=== PATIENT | male | born 1950 | race Caucasian/White ===

== ENCOUNTER 2016-10-03 09:09 | Emergency (ER) | payer MEDICARE, OTHER ==
[2016-10-03 09:38] VITALS: BP 148/71
--- NOTE | 2016-10-03 10:18 | EDM.PDOC ---
ED HPI RENAL/ - General Chief Complaint: Genitourinary Problem Stated Complaint: URINARY RETENTION Time Seen by Provider: 10/03/16 09:45 Source of Information: Reports: Patient History Limitations: Reports: No limitations - History of Present Illness INITIAL COMMENTS - FREE TEXT/NARRATIVE: PT STATES HE UNDERWENT HEMORRHOIDECTOMY YESTERDAY AT 1600 AND HAS BEEN UNABLE TO VOID SINCE. DEVELOPING LOWER ABD PRESSURE. DENIES TESTICULAR PAIN, , N/V, EXCESSIVE BLEEDING FROM RECTUM, OR FLANK PAIN. Symptom Onset Date: 10/02/16 Location: Reports: suprapubic Quality: Reports: fullness Severity: mild Associated Symptoms: Reports: unable to urinate, abdominal pain - Related Data Allergies/ADRs: Allergies Allergy/AdvReac Type Severity Reaction Status Date / Time No Known Drug Allergies Allergy Cannot Verified 10/03/16 09:39 Remember Home Meds: Home Meds Acetaminophen/HYDROcodone [[employer] 325-5 MG] 1 - 2 tab PO Q4H PRN 10/03/16 [ History] Aspirin [Halfprin] 162 mg PO DAILY 10/03/16 [History] Furosemide [Lasix] 1 tab PO DAILY 10/03/16 [History] Lisinopril/Hydrochlorothiazide [Lisinopril-Hctz 20-25 mg Tab] 1 tab PO BID 10/03 [History] Polyethylene Glycol 3350 [MiraLAX] 1 pkt PO BID PRN 10/03/16 [History] Simvastatin [Zocor] 1 tab PO BEDTIME 10/03/16 [History] metFORMIN HCl [Metformin HCl] 1 tab PO BIDMEALS 10/03/16 [History] Past Medical History HEENT History: Reports: Hard of hearing, Impaired vision Cardiovascular History: Reports: High cholesterol, Hypertension Gastrointestinal History: Reports: Hemorrhoids Endocrine/Metabolic History: Reports: Diabetes, type II - Infectious Disease History Infectious Disease History: Reports: Chicken pox - Past Surgical History Head Surgeries/Procedures: Reports: None HEENT Surgical History: Reports: Adenoidectomy, Tonsillectomy Cardiovascular Surgical History: Reports: None GI Surgical History: Reports: Appendectomy, Colonoscopy, Other (see below) Other GI Surgeries/Procedures: Hemmorrhoidectomy done 09/22/16. Endocrine Surgical History: Reports: None Social & Family History - Tobacco Use Smoking Status *Q: Former Smoker Used Tobacco, but Quit: Yes Month Tobacco Last Used: 22 years - Caffeine Use Caffeine Use: Reports: Coffee, Soda, Tea - Recreational Drug Use Recreational Drug Use: No ED ROS GENERAL - Review of Systems Review Of Systems: ROS reveals no pertinent complaints other than HPI. Constitutional: Reports: no symptoms HEENT: Reports: No symptoms Respiratory: Reports: No Symptoms Cardiovascular: Reports: No symptoms Endocrine: Reports: no symptoms GI/Abdominal: Reports: Abdominal pain : Reports: urinary retention. Denies: flank pain Musculoskeletal: Reports: no symptoms Skin: Reports: no symptoms Neurological: Reports: No Symptoms Psychiatric: Reports: No symptoms Hematologic/Lymphatic: Reports: no symptoms Immunologic: Reports: no symptoms ED EXAM, RENAL/ - Physical Exam Exam: See Below Exam Limited By: No limitations General Appearance: alert, WD/WN, no apparent distress Throat/Mouth: Normal inspection, Normal oropharynx, No airway compromise Head: atraumatic, normocephalic Respiratory/Chest: no respiratory distress, lungs clear, normal breath sounds, no accessory muscle use, chest non-tender Cardiovascular: regular rate, rhythm, no murmur GI/Abdominal: normal bowel sounds, soft (Male) Exam: No hernia, Normal inspection, Circumcised Back Exam: normal inspection. No: CVA tenderness (L), CVA tenderness (R) Extremities: normal inspection, no pedal edema Neurological: alert, oriented, normal cognition Psychiatric: normal affect, normal mood Skin Exam: Warm, Dry, Intact, Normal color, No rash Lymphatic: no adenopathy Course - Vital Signs Last Recorded V/S: Last Vital Signs Temp 99.4 F 10/03/16 09:35 Pulse 65 10/03/16 09:35 Resp 16 10/03/16 09:35 BP 148/71 H 10/03/16 09:35 Pulse Ox 94 L 10/03/16 09:35 - Orders/Labs/Meds Orders: Active Orders 24 hr Category Date Time Status Insert Urinary Catheter [OM.PC] Q24H Care 10/03/16 09:45 Ordered Urinary Catheter Assessment [RC] ASDIRECTED Care 10/03/16 09:41 Active Labs: Laboratory Tests 10/03/16 Range/Units 09:30 Specimen Type Urincath Urine Color Yellow (YELLOW) Urine Appearance Clear (CLEAR) Urine pH 6.5 (5.0-9.0) Ur Specific [place] 1.015 (1.005-1.030) Urine Protein Negative (NEGATIVE) mg/dL Urine Glucose (UA) Negative (NEGATIVE) mg/dL Urine Ketones Negative (NEGATIVE) mg/dL Urine Occult Blood Negative (NEGATIVE) Urine Nitrite Negative (NEGATIVE) Urine Bilirubin Negative (NEGATIVE) Urine Urobilinogen 0.2 (0.2-1.0) E.U./dL Ur Leukocyte Esterase Negative (NEGATIVE) Urine RBC Not seen /HPF Urine WBC Not seen /HPF Hyaline Casts Moderate H (NEGATIVE) /LPF Granular Casts Few H (NEGATIVE) /LPF Urine Mucus Moderate H (NEGATIVE) /LPF - Re-Assessments/Exams Free Text/Narrative Re-Assessment/Exam: 10/03/16 10:17 PT AFEBRILE, NONTOXIC APPEARING, URINARY BELTRÁN WITH LEG BAG PLACED, 1400 CC. Departure - Departure Time of Disposition: 10:18 Disposition: Home, Self-Care 01 Condition: good Clinical Impression: Acute urinary retention Instructions: [place] Catheter Care, Adult, Acute Urinary Retention, Male, Easy- to-Read Forms: ED Department Discharge Additional Instructions: FOLLOW UP ON FRIDAY AT CLINIC - My Orders Last 24 Hours: My Active Orders 10/03/16 09:41 Urinary Catheter Assessment [RC] ASDIRECTED 10/03/16 09:45 Insert Urinary Catheter [OM.PC] Q24H - Assessment/Plan Last 24 Hours: My Active Orders 10/03/16 09:41 Urinary Catheter Assessment [RC] ASDIRECTED 10/03/16 09:45 Insert Urinary Catheter [OM.PC] Q24H Assessment:: URINARY RETENTION Plan: BELTRÁN CATH AND F/U AT CLINIC ON FRIDAY
== END 2016-10-03 10:30 | disposition home or self-care (01) ==
LOC: KA.ED 09:09
DX: R33.9 Retention of urine, unspecified (principal); E78.00 Pure hypercholesterolemia, unspecified; I10 Essential (primary) hypertension; E11.9 Type 2 diabetes mellitus without complications; Z98.890 Other specified postprocedural states; Z87.891 Personal history of nicotine dependence; Z79.82 Long term (current) use of aspirin; Z79.899 Other long term (current) drug therapy
CPT/HCPCS: 81001; 99282; 99283

== ENCOUNTER 2020-03-26 15:14 | Emergency (ER) | payer MEDICARE, OTHER ==
--- NOTE | 2020-03-26 16:04 | EDM.PDOC ---
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 Mild discomfort with a crushing type laceration of the tissue itself. Denies any bone pain denies any deformity, denies difficulty in motion. Bleeding was controlled with direct pressure. [place] he would be able to tape this up until after cleansing, seeing fatty tissue protruding from the laceration secondary of pressure. His daughter whom he was assisting in this project insisted that he seek evaluation. Onset: Today, Sudden Duration: Minutes:, Getting Worse Location: Reports: Upper Extremity, Left Quality: Reports: Burning Severity: Moderate Improves with: Reports: None Worsens with: Reports: Movement Context: Reports: Activity Associated Symptoms: Reports: No Other Symptoms Left Finger-Ring Pain Score (Numeric/FACES): 2 - Related Data Allergies Allergy/AdvReac Type Severity Reaction Status Date / Time Tetanus Vaccines and Toxoid Allergy Muscle Verified 03/26/20 16:36 Aches Home Meds: Home Meds Acetaminophen/HYDROcodone [[place] 325-5 MG] 1 - 2 tab PO Q4H PRN 10/03/16 [History] Aspirin [Halfprin] 162 mg PO DAILY 10/03/16 [History] Furosemide [Lasix] 1 tab PO DAILY 10/03/16 [History] Lisinopril/Hydrochlorothiazide [Lisinopril-Hctz 20-25 mg Tab] 1 tab PO BID 10/03/16 [History] Polyethylene Glycol 3350 [MiraLAX] 1 pkt PO BID PRN 10/03/16 [History] Simvastatin [Zocor] 1 tab PO BEDTIME 10/03/16 [History] metFORMIN HCl [Metformin HCl] 1 tab PO BIDMEALS 10/03/16 [History] Past Medical History HEENT History: Reports: Hard of Hearing, Impaired Vision Cardiovascular History: Reports: High Cholesterol, Hypertension Gastrointestinal History: Reports: Hemorrhoids Endocrine/Metabolic History: Reports: Diabetes, Type II - Infectious Disease History Infectious Disease History: Reports: Chicken Pox - Past Surgical History Head Surgeries/Procedures: Reports: None GI Surgical History: Reports: Appendectomy, Colonoscopy, Other (See Below) Musculoskeletal Surgical History: Reports: Shoulder Surgery Social & Family History - Family History Family Medical History: Noncontributory - Caffeine Use Caffeine Use: Reports: Coffee, Soda, Tea ED ROS GENERAL - Review of Systems Review Of Systems: Comprehensive ROS is negative, except as noted in HPI. ED EXAM, GENERAL - Physical Exam Exam: See Below Free Text/Narrative:: Alert, oriented, in no acute distress. HEENT negative discharge or deformity. There is no respiratory distress noted with clear nonlabored respirations. Cardiac regular Focused examination to the left upper extremity shows a laceration to the medial aspect of the distal phalange 0.5 cm with some fatty tissue protruding. CMS is intact with capillary refill less than 3 seconds. There is no other injury noted. Nothing else is complained of. ED GENERAL MEDICAL PROCEDURES - Laceration/Wound Repair Medial Distal Digit - 4th (Ring) Appearance: Subcutaneous Distal NVT: Neuro & Vascular Intact, No Tendon Injury Anesthetic Type: Local Local Anesthesia - Lidocaine (Xylocaine): 2% Plain Local Anesthetic Volume: 2cc Skin Prep: Providone-Iodine (Betadine) Exploration/Debridement/Repair: Minimal Debridement Closed with: Sutures Suture Size: 4-0 # of Sutures: 3 Suture Type: Nylon Sterile Dressing Applied: Provider Tetanus Status Addressed: Yes Progress/Comments: States that roughly 3 years ago received a tetanus immunization at the [facility]. States he experienced myalgias with malaise for 1 week thereafter, being told that he was likely allergic to tetanus immunization. Course - Vital Signs Last Recorded V/S: Last Vital Signs Temp 35.7 C L 03/26/20 15:30 Pulse 63 03/26/20 15:30 Resp 20 03/26/20 15:30 BP 157/74 H 03/26/20 15:30 Pulse Ox 97 03/26/20 15:30 - Orders/Labs/Meds Meds: Medications Discontinued Medications Generic Name Dose Route Start Last Admin Trade Name Freq PRN Reason Stop Dose Admin Lidocaine 5 ml 03/26/20 16:14 03/26/20 16:35 Xylocaine-Mpf 2% INJECT 03/26/20 16:15 1 ml ONETIME ONE Administration Neomycin/Polymyxin/Bacitracin 1 each 03/26/20 16:14 03/26/20 16:48 Triple Antibiotic Oint TOP 03/26/20 16:15 1 each ONETIME ONE Administration Departure - Departure Time of Disposition: 17:02 Disposition: Home, Self-Care 01 Condition: Good Clinical Impression: Laceration, Suture of skin wound - Discharge Information *PRESCRIPTION DRUG MONITORING PROGRAM REVIEWED*: Not Applicable *COPY OF PRESCRIPTION DRUG MONITORING REPORT IN PATIENT KIMBER: Not Applicable Instructions: Wound Care, Adult, Laceration Care, Adult, [id number], Sutures, [place], or Adhesive Wound Closure, [id number] Referrals: Christina Cohen PA-C [Primary Care Provider] - Forms: ED Department Discharge Additional Instructions: Keep dressing in place until tomorrow morning. Change dressing daily and if soiled. Call your clinic to have sutures removed in 10 days. 3 interrupted sutures were placed. Avoid soaking of the finger until sutures are removed. Continue your medications as directed. You may ice and elevate this for the next 24 hours to reduce swelling. Call your clinic to schedule appointment or call or return to the emergency department this weekend if concerns develop. Sepsis Event Note (ED) - Focused Exam Vital Signs: Vital Signs Temp Pulse Resp BP Pulse Ox 03/26/20 15:30 35.7 C L 63 20 157/74 H 97 - Problem List & Annotations (1) Laceration SNOMED Code(s): 512524111 Code(s): DPP9809 - Status: Acute Priority: High Current Visit: Yes (2) Suture of skin wound SNOMED Code(s): 388297874, 859113756 Code(s): T14.8XXA - OTHER INJURY OF UNSPECIFIED BODY REGION, INITIAL EN COUNTER Status: Acute Current Visit: Yes - Problem List Review Problem List Initiated/Reviewed/Updated: Yes - Assessment/Plan Plan: Keep dressing in place until tomorrow morning. Change dressing daily and if soiled. Call your clinic to have sutures removed in 10 days. 3 interrupted sutures were placed. Avoid soaking of the finger until sutures are removed. Continue your medications as directed. You may ice and elevate this for the next 24 hours to reduce swelling. Call your clinic to schedule appointment or call or return to the emergency department this weekend if concerns develop.
[2020-03-26] MEDS ORDERED: Bacitracin/Neomycin/Polymyxin B Oint 0.9 GM U/D Packet TOP ONE (16:14)
[2020-03-26] MEDS ORDERED: Lidocaine 2% 5 ML SDV INJECT ONE (16:14)
[2020-03-26 16:38] VITALS: BP 157/74; PULSE 63
== END 2020-03-26 17:15 | disposition home or self-care (01) ==
LOC: KA.ED 15:14
DX: S61.215A Laceration without foreign body of left ring finger without damage to nail, initial encounter (principal); I10 Essential (primary) hypertension; E78.00 Pure hypercholesterolemia, unspecified; E11.9 Type 2 diabetes mellitus without complications; Z90.49 Acquired absence of other specified parts of digestive tract; Z88.7 Allergy status to serum and vaccine; Z79.82 Long term (current) use of aspirin; Z79.84 Long term (current) use of oral hypoglycemic drugs; Z79.899 Other long term (current) drug therapy; W23.0XXA Caught, crushed, jammed, or pinched between moving objects, initial encounter
CPT/HCPCS: 12001; 99282-25; 99283; J2001

== ENCOUNTER 2020-04-18 08:07 | Emergency (ER) | payer MEDICARE, OTHER ==
--- NOTE | 2020-04-18 09:12 | EDM.PDOC ---
ED HPI GENERAL MEDICAL PROBLEM - General Chief Complaint: General Stated Complaint: LEGS TINGLY Time Seen by Provider: 04/18/20 08:56 Source of Information: Reports: Patient History Limitations: Reports: No Limitations - History of Present Illness INITIAL COMMENTS - FREE TEXT/NARRATIVE: Patient presents with shortness of breath that he describes as a heaviness in low sternal area that comes and goes, lasting about 5 minutes at a time. It is accompanied by a fullness in his throat. Also has a mild dry cough. This started two weeks ago. His PCP started treatment for bronchitis: augmentin and a 12-day prednisone taper; he is on day 5 of these. It seemed to be improving until this morning, but is now worse again. He feels dry but has been drinking 64-80 ozs of water daily. He tested negative for Covid on 04/11 and hasn't been around anybody since then. - Related Data Allergies Allergy/AdvReac Type Severity Reaction Status Date / Time Tetanus Vaccines and Toxoid Allergy Muscle Verified 04/18/20 08:49 Aches Home Meds: Home Meds Aspirin [Halfprin] 162 mg PO DAILY 10/03/16 [History] Simvastatin [Zocor] 40 mg PO BEDTIME 10/03/16 [History] metFORMIN HCl [Metformin HCl] 500 mg PO BIDMEALS 10/03/16 [History] Amoxicillin/Potassium Clav [Amox-Clav 875-125 mg Tablet] 1 tab PO BID 04/18/20 [History] lisinopriL [Prinivil] 20 mg PO BID 04/18/20 [History] predniSONE [Prednisone] 20 mg PO ASDIRECTED 04/18/20 [History] Past Medical History HEENT History: Reports: Hard of Hearing, Impaired Vision Cardiovascular History: Reports: High Cholesterol, Hypertension Gastrointestinal History: Reports: Hemorrhoids Endocrine/Metabolic History: Reports: Diabetes, Type II - Infectious Disease History Infectious Disease History: Reports: Chicken Pox, Measles, Mumps - Past Surgical History Head Surgeries/Procedures: Reports: None GI Surgical History: Reports: Appendectomy, Colonoscopy, Other (See Below) Musculoskeletal Surgical History: Reports: Shoulder Surgery Social & Family History - Family History Family Medical History: No Pertinent Family History - Tobacco Use Tobacco Use Status *Q: Former Tobacco User Used Tobacco, but Quit: Yes Month/Year Tobacco Last Used: quit 25 yrs ago - Caffeine Use Caffeine Use: Reports: Coffee, Soda, Tea - Alcohol Use Days Per Week of Alcohol Use: 3 Number of Drinks Per Day: 2 Total Drinks Per Week: 6 - Recreational Drug Use Recreational Drug Use: No ED ROS GENERAL - Review of Systems Review Of Systems: See Below Constitutional: Reports: Fatigue. Denies: Fever, Chills, Malaise, Weakness HEENT: Denies: Ear Pain, Throat Pain, Vision Change Respiratory: Reports: Shortness of Breath, Cough Cardiovascular: Denies: Syncope GI/Abdominal: Denies: Abdominal Pain, Constipation, Diarrhea, Vomiting : Denies: Dysuria Musculoskeletal: Denies: Neck Pain, Shoulder Pain, Arm Pain, Back Pain Skin: Denies: Cyanosis, Jaundice, Mottled, Pallor, Diaphoresis Neurological: Denies: Confusion, Dizziness, Headache, Seizure, Syncope, Trouble Speaking, Difficulty Walking Psychiatric: Denies: Agitation, Anxiety, Confusion ED EXAM, GENERAL - Physical Exam Exam: See Below Exam Limited By: No Limitations General Appearance: Alert, WD/WN, No Apparent Distress Eye Exam: Bilateral Eye: EOMI, Normal Inspection, PERRL Ears: Normal External Exam, Hearing Grossly Normal Nose: Normal Inspection, No Blood Throat/Mouth: Normal Inspection, Normal Lips, Normal Voice, No Airway Compromise Head: Atraumatic, Normocephalic Neck: Normal Inspection, Supple, Non-Tender, Full Range of Motion Respiratory/Chest: No Respiratory Distress, Lungs Clear, Normal Breath Sounds, No Accessory Muscle Use Cardiovascular: Regular Rate, Rhythm, No Murmur Peripheral Pulses: 2+: Carotid (L), Carotid (R), Radial (L), Radial (R) GI/Abdominal: Soft, Non-Tender, No Organomegaly, No Distention Back Exam: Normal Inspection, Full Range of Motion. No: CVA Tenderness (L), CVA Tenderness (R) Extremities: Normal Inspection, Normal Range of Motion Neurological: Alert, Oriented, Normal Cognition, No Motor/Sensory Deficits Psychiatric: Normal Affect, Normal Mood Skin Exam: Warm, Dry, Intact, Normal Color, No Rash Course - Vital Signs Last Recorded V/S: Last Vital Signs Temp 97.1 F 04/18/20 08:12 Pulse 57 L 04/18/20 09:45 Resp 17 04/18/20 09:45 BP 184/78 H 04/18/20 09:45 Pulse Ox 96 04/18/20 09:45 - Orders/Labs/Meds Orders: Active Orders 24 hr Category Date Time Status EKG Documentation Completion [RC] ASDIRECTED Care 04/18/20 09:02 Active EKG 12 Lead [EK] Stat Ther 04/18/20 09:01 Ordered Labs: Laboratory Tests 04/18/20 04/18/20 04/18/20 Range/Units 08:38 09:05 09:05 WBC 10.48 H (5.00-10.00) 10^3/uL RBC 5.66 (4.50-6.00) 10^6/uL Hgb 16.8 (13.0-17.0) g/dL Hct 51.1 (40.0-52.0) % MCV 90.3 (82.0-92.0) fL MCH 29.7 (27.0-31.0) pg MCHC 32.9 (32.0-36.0) g/dL RDW 13.0 (11.5-14.5) % Plt Count 279 (150-400) 10^3/uL MPV 11.1 H (7.4-10.4) fL Immature Gran % (Auto) 0.3 (0.0-5.0) % Neut % (Auto) 71.1 H (50.0-70.0) % Lymph % (Auto) 21.3 (20.0-40.0) % [place] % (Auto) 5.9 (2.0-8.0) % Eos % (Auto) 0.7 L (1.0-3.0) % Baso % (Auto) 0.7 (0.0-1.0) % Neut # (Auto) 7.46 H (2.50-7.00) 10^3/uL Lymph # (Auto) 2.23 (1.00-4.00) 10^3/uL [place] # (Auto) 0.62 (0.10-0.80) 10^3/uL Eos # (Auto) 0.07 L (0.10-0.30) 10^3/uL Baso # (Auto) 0.07 (0.00-0.10) 10^3/uL Immature Gran # (Auto) 0.03 (0.00-0.50) 10^3/uL Sodium 138 (136-145) mmol/L Potassium 3.9 (3.3-5.3) mmol/L Chloride 101 (98-115) mmol/L Carbon Dioxide 21.6 (21.0-32.0) mmol/L Anion Gap 19.3 H (5-15) mmol/L BUN 13 (6-25) mg/dL Creatinine 0.66 (0.51-1.17) mg/dL Est Cr Clr Drug Dosing 114.31 mL/min Estimated GFR (MDRD) > 60 mL/min Glucose 122 H (75 - 99) mg/dL Calcium 9.3 (8.7-10.3) mg/dL Troponin I < 0.04 (0.00-0.070) ng/mL - Re-Assessments/Exams Free Text/Narrative Re-Assessment/Exam: 04/18/20 09:20 CXR shows faint interstitial pattern unchanged from 04/14/20. BP was up to 206/105 briefly then back to 186/93. He says he took his BP meds this morning like always. At home it has been running high quite a bit too. 04/18/20 09:25 EKG is normal except HR 55. 04/18/20 09:51 Trop is negative. Discussed findings with patient. No significant or concerning findings. He will continue the Abx and steroid regimens he is on and follow up with his PCP in 2-3 days if not improving. Discharged to home in stable condition. Departure - Departure Time of Disposition: 09:53 Disposition: Home, Self-Care 01 Condition: Good Clinical Impression: Dyspnea - Discharge Information Instructions: Shortness of Breath, Adult, [id number] Referrals: Christina Cohen PA-C [Primary Care Provider] - Forms: ED Department Discharge Additional Instructions: Continue to drink at least 8 cups of water daily. Continue the medications from your PCP as directed. Continue your regular medications. Follow up with your PCP in 2-3 days for recheck if not resolving and to evaluate your blood pressure control. Recheck sooner with PCP or ER if needed. Sepsis Event Note (ED) - Evaluation Sepsis Screening Result: No Definite Risk - Focused Exam Vital Signs: Vital Signs Temp Pulse Resp BP Pulse Ox 04/18/20 09:45 57 L 17 184/78 H 96 04/18/20 09:31 54 L 14 176/73 H 95 04/18/20 09:15 56 L 21 H 186/93 H 98 04/18/20 09:00 61 11 L 206/105 H 96 04/18/20 08:45 55 L 20 188/82 H 97 04/18/20 08:30 62 20 194/96 H 99 04/18/20 08:15 57 L 18 184/84 H 98 04/18/20 08:12 97.1 F 60 22 H 188/86 H 95 - My Orders Last 24 Hours: My Active Orders 04/18/20 09:01 EKG 12 Lead [EK] Stat 04/18/20 09:02 EKG Documentation Completion [RC] ASDIRECTED - Assessment/Plan Last 24 Hours: My Active Orders 04/18/20 09:01 EKG 12 Lead [EK] Stat 04/18/20 09:02 EKG Documentation Completion [RC] ASDIRECTED
--- NOTE | 2020-04-18 09:15 | CR ---
[id number] RAD/RAD Chest PA or AP 1V EXAM: SINGLE VIEW CHEST. INDICATION: SHORTNESS OF BREATH COMPARISON: CORRELATION IS MADE WITH APRIL 14, 2020 FINDINGS: A faint interstitial pattern remains the same Surgical changes of the left shoulder are seen The cardiac silhouette is enlarged but stable IMPRESSION: NO CHANGE SINCE LAST EXAM Octavio Erickson MD 04/18/20 0914 Thank you for allowing us to participate in the care of your patient.
[2020-04-18 09:32] LABS: ANION GAP 19.3 mmol/L (5-15); CHLORIDE,CL 101 mmol/L (98-115); SODIUM,NA 138 mmol/L (136-145)
[2020-04-18 09:47] VITALS: BP 184/78; PULSE 57
== END 2020-04-18 10:00 | disposition home or self-care (01) ==
LOC: KA.ED 08:07
DX: R06.02 Shortness of breath (principal); E78.00 Pure hypercholesterolemia, unspecified; I10 Essential (primary) hypertension; E11.9 Type 2 diabetes mellitus without complications; Z79.82 Long term (current) use of aspirin; Z79.84 Long term (current) use of oral hypoglycemic drugs; Z79.899 Other long term (current) drug therapy; Z88.7 Allergy status to serum and vaccine; Z87.891 Personal history of nicotine dependence
CPT/HCPCS: 36415; 71045; 80048; 84484; 85025; 93005; 99284; 99285-25

== ENCOUNTER 2020-06-27 11:26 | Emergency (ER) | payer MEDICARE, OTHER ==
--- NOTE | 2020-06-27 11:30 | EDM.PDOC ---
ED HPI GENERAL MEDICAL PROBLEM - General Chief Complaint: Neuro Symptoms/Deficits Stated Complaint: WEAKNESS,NAUSEA Time Seen by Provider: 06/27/20 11:29 Source of Information: Reports: Patient History Limitations: Reports: No Limitations - History of Present Illness INITIAL COMMENTS - FREE TEXT/NARRATIVE: Abiel, 69-year-old male, presents by private vehicle driven by his secondary of tingling sensation to his face and to the lower extremities with generalized weakness. This has resolved upon arrival. Has continuing abdominal pressure/nausea with no difficulty breathing no shortness of breath, nor chest pain. He is retired spending the majority of the winter in his home with no exertional activity. States "his mattress is fairly new and is supposedly good for what you pay for them." He has not undergone any spinal work-up as of recent. He states all symptoms other than the abdominal pressure questionable nausea resolved while traveling to the emergency department. He had 2 bowel movements this morning both of which he states were within his normal expectations. Has been at home with low for risk exposures, and no symptoms of pandemic COVID- 19. Onset: Today Onset Date: 06/27/20 Onset Time: 10:00 Duration: Hour(s):, Resolved Prior to Arrival Location: Reports: Face, Chest, Abdomen, Lower Extremity, Left, Lower Extremity, Right Quality: Reports: Other Severity: Moderate Improves with: Reports: Other (time from onset, resolved on arrival) Worsens with: Reports: None Context: Reports: Activity Associated Symptoms: Reports: No Other Symptoms - Related Data Allergies Allergy/AdvReac Type Severity Reaction Status Date / Time Tetanus Vaccines and Toxoid Allergy Muscle Verified 06/27/20 11:36 Aches Home Meds: Home Meds Aspirin [Halfprin] 162 mg PO DAILY 10/03/16 [History] Simvastatin [Zocor] 40 mg PO BEDTIME 10/03/16 [History] metFORMIN HCl [Metformin HCl] 500 mg PO BIDMEALS 10/03/16 [History] Amoxicillin/Potassium Clav [Amox-Clav 875-125 mg Tablet] 1 tab PO BID 04/18/20 [History] lisinopriL [Prinivil] 20 mg PO BID 04/18/20 [History] predniSONE [Prednisone] 20 mg PO ASDIRECTED 04/18/20 [History] Past Medical History HEENT History: Reports: Hard of Hearing, Impaired Vision Cardiovascular History: Reports: High Cholesterol, Hypertension Gastrointestinal History: Reports: Hemorrhoids Musculoskeletal History: Reports: Back Pain, Chronic, Other (See Below) (Left shoulder pain) Endocrine/Metabolic History: Reports: Diabetes, Type II - Infectious Disease History Infectious Disease History: Reports: Chicken Pox, Measles, Mumps - Past Surgical History Head Surgeries/Procedures: Reports: None GI Surgical History: Reports: Appendectomy, Colonoscopy, Other (See Below) Neurological Surgical History: Reports: Lumbar Spine (disc rupture) Musculoskeletal Surgical History: Reports: Shoulder Surgery - Past Imaging History Past Imaging History: Reports: MRI, Xray Social & Family History - Family History Family Medical History: No Pertinent Family History - Tobacco Use Tobacco Use Status *Q: Former Tobacco User Tobacco Use Within Last Twelve Months: No Used Tobacco, but Quit: Yes Smoking Cessation Information Provided To Patient: No Second Hand Smoke Exposure: No - Caffeine Use Caffeine Use: Reports: Coffee, Soda, Tea - Living Situation & Occupation Living situation: Reports: , with Spouse ED ROS GENERAL - Review of Systems Review Of Systems: Comprehensive ROS is negative, except as noted in HPI. ED EXAM, GENERAL - Physical Exam Exam: See Below Free Text/Narrative:: Alert, oriented, in no acute distress. HEENT is negative for any facial asymmetry, he is able to smile, frown, manipulate his tongue and point his tongue with no deficit at this time. His facial paresthesia has resolved completely. Neck is soft supple with no lymphadenopathy. His left shoulder has chronic weakness and limitations to motion secondary of injury with reevaluation coming up in the next month. Thorax is clear throughout with no wheezes or crackles. Cardiac is S1 is 2 I do not appreciate any murmur, he is mildly bradycardic at the time of assessment. Abdomen is rotund soft there is no hepatosplenomegaly. Bowel sounds are present. No flank pain tenderness to percussion no spinal tenderness or radiculopathy induced with an incision in the lumbar region that is well approximated healed several years old. His reflexes are mildly delayed in the upper extremities bilateral. His lower patellar reflex is hyper bilateral. There is transient weakness to plantar flexion dorsiflexion, of what I would attribute in a gentleman of this age and stature. We do discuss sleeping properties that he almost always sleeps in bed, with a reasonable mattress. But coincidence of this resolving in the lower extremities with positioning and motion makes me aware of his previous surgical disc involvement. Nearly 30 years since surgery with no reevaluation. #1 Interpretation EKG Date: 06/27/20 Time: 12:20 Rhythm: NSR Rate (Beats/Min): 57 [place]: Normal P-Wave: Present QRS: Normal ST-T: Normal QT: Normal Comparison: No Change (Bradycardia rate 57 compared to 55 on prior) Course - Vital Signs Last Recorded V/S: Last Vital Signs Temp 97.4 F 06/27/20 12:17 Pulse 58 L 06/27/20 12:17 Resp 14 06/27/20 12:17 BP 158/67 H 06/27/20 12:17 Pulse Ox 97 06/27/20 12:17 - Orders/Labs/Meds Orders: Active Orders 24 hr Category Date Time Status EKG 12 Lead [EK] Urgent Ther 06/27/20 11:42 Ordered Labs: Laboratory Tests 06/27/20 06/27/20 Range/Units 11:45 11:45 WBC 10.13 H (5.00-10.00) 10^3/uL RBC 5.30 (4.50-6.00) 10^6/uL Hgb 15.9 (13.0-17.0) g/dL Hct 47.4 (40.0-52.0) % MCV 89.4 (82.0-92.0) fL MCH 30.0 (27.0-31.0) pg MCHC 33.5 (32.0-36.0) g/dL RDW 14.1 (11.5-14.5) % Plt Count 278 (150-400) 10^3/uL MPV 10.5 H (7.4-10.4) fL Immature Gran % (Auto) 0.2 (0.0-5.0) % Neut % (Auto) 60.7 (50.0-70.0) % Lymph % (Auto) 26.9 (20.0-40.0) % [place]mer % (Auto) 9.5 H (2.0-8.0) % Eos % (Auto) 2.1 (1.0-3.0) % Baso % (Auto) 0.6 (0.0-1.0) % Neut # (Auto) 6.15 (2.50-7.00) 10^3/uL Lymph # (Auto) 2.73 (1.00-4.00) 10^3/uL [place]mer # (Auto) 0.96 H (0.10-0.80) 10^3/uL Eos # (Auto) 0.21 (0.10-0.30) 10^3/uL Baso # (Auto) 0.06 (0.00-0.10) 10^3/uL Immature Gran # (Auto) 0.02 (0.00-0.50) 10^3/uL Sodium 135 L (136-145) mmol/L Potassium 5.3 H (3.5-5.1) mmol/L Chloride 102 (98-107) mmol/L Carbon Dioxide 26.6 (21.0-32.0) mmol/L Anion Gap 11.7 (5-15) mmol/L BUN 10 (7-18) mg/dL Creatinine 0.75 (0.51-1.17) mg/dL Est Cr Clr Drug Dosing 100.59 mL/min Estimated GFR (MDRD) > 60 mL/min Glucose 104 (70-140) mg/dL Calcium 9.3 (8.7-10.3) mg/dL Total Bilirubin 0.7 (0.2-1.0) mg/dL AST 48 H (15-37) U/L ALT 31 (14-63) U/L Alkaline Phosphatase 57 (46-116) U/L Creatine Kinase 161 (26-276) U/L CK-MB (CK-2) 0.87 (0.00-3.60) ng/mL Troponin I < 0.017 (0.000-0.056) ng/mL Total Protein 7.5 (6.4-8.2) g/dL Albumin 3.60 (3.40-5.00) g/dL - Radiology Interpretation Free Text/Narrative:: No evidence of cardiomegaly or acute infiltrate. Mild interstitial pattern is noted. Departure - Departure Time of Disposition: 13:24 Disposition: Home, Self-Care 01 Condition: Good Clinical Impression: Tingling in extremities, Acute hyperkalemia - Discharge Information *PRESCRIPTION DRUG MONITORING PROGRAM REVIEWED*: Not Applicable *COPY OF PRESCRIPTION DRUG MONITORING REPORT IN PATIENT KIMBER: Not Applicable Instructions: Hyperkalemia, [id number], Paresthesia, [id number] Referrals: Christina Cohen PA-C [Primary Care Provider] - Forms: ED Department Discharge Additional Instructions: CT scan of your brain shows changes of age, chronic microvascular involvement. Your chest x-ray is normal for any involvement. EKG shows no evidence of heart circulation issues, as well as your heart blood work being negative. Your potassium is slightly elevated, probably related to the intake of your bananas. You should schedule an appointment in the next week to follow-up with Christnia in regards to the potassium level as well as your routine diabetic follow-up that you state is coming due. When you go back to [place] to talk to them about your shoulder, I would recommend discussing the issue with your bilateral tingling to the lower extremities that comes on and resolves spontaneously. This recommendation is based on the fact you had disc surgery nearly 30 years ago and should have follow-up on this based on your symptoms. Continue your diabetic diet, good fluid hydration, and schedule an appointment for your convenience in the next week. Return to the emergency department or contact the clinic otherwise as needed. Sepsis Event Note (ED) - Focused Exam Vital Signs: Vital Signs Temp Pulse Resp BP Pulse Ox 06/27/20 12:17 97.4 F 58 L 14 158/67 H 97 06/27/20 11:30 97.4 F 65 20 191/80 H 97 - Problem List & Annotations (1) Tingling in extremities SNOMED Code(s): 94927296, 620878458, 000699607 Code(s): R20.2 - PARESTHESIA OF SKIN Status: Acute (2) Tingling of face SNOMED Code(s): 38773126, 124961434 Code(s): R20.2 - PARESTHESIA OF SKIN Status: Acute (3) Acute hyperkalemia SNOMED Code(s): 5991951 Code(s): E87.5 - HYPERKALEMIA Status: Acute (4) Hx of lumbosacral spine surgery SNOMED Code(s): 657454282 Code(s): Z98.890 - OTHER SPECIFIED POSTPROCEDURAL STATES Status: Acute - My Orders Last 24 Hours: My Active Orders 06/27/20 11:42 EKG 12 Lead [EK] Urgent - Assessment/Plan Last 24 Hours: My Active Orders 06/27/20 11:42 EKG 12 Lead [EK] Urgent Plan: CT scan of your brain shows changes of age, chronic microvascular involvement. Your chest x-ray is normal for any involvement. EKG shows no evidence of heart circulation issues, as well as your heart blood work being negative. Your potassium is slightly elevated, probably related to the intake of your bananas. You should schedule an appointment in the next week to follow-up with Christina in regards to the potassium level as well as your routine diabetic follow-up that you state is coming due. When you go back to [place] to talk to them about your shoulder, I would recommend discussing the issue with your bilateral tingling to the lower extre mities that comes on and resolves spontaneously. This recommendation is based on the fact you had disc surgery nearly 30 years ago and should have follow-up on this based on your symptoms. Continue your diabetic diet, good fluid hydration, and schedule an appointment for your convenience in the next week. Return to the emergency department or contact the clinic otherwise as needed.
[2020-06-27 12:24] VITALS: BP 158/67; PULSE 58
[2020-06-27 12:29] LABS: ANION GAP 11.7 mmol/L (5-15); CHLORIDE,CL 102 mmol/L (98-107); SODIUM,NA 135 mmol/L (136-145)
--- NOTE | 2020-06-27 13:01 | CR ---
[id number] RAD/RAD Chest PA And Lateral EXAM: RAD Chest PA And Lateral INDICATION: PRESSURE. COMPARISON: April 18, 2020. DISCUSSION: Cardiomediastinal silhouette is stable in size and contour. No infiltrate, effusion, pneumothorax, or edema. Pulmonary hyperinflation. IMPRESSION: No acute cardiopulmonary abnormality. Nile Moralez DO 06/27/20 1300 Thank you for allowing us to participate in the care of your patient.
--- NOTE | 2020-06-27 13:07 | CT ---
[id number] CT/CT Head WO IV EXAM: CT Head WO IV CLINICAL DATA: TINGLING. COMPARISON STUDY: None FINDINGS: No intracranial hemorrhage, extra-axial fluid collection, mass, or acute ischemia. Generalized parenchymal atrophy with scattered areas of nonspecific white matter disease, commonly seen as sequela of chronic microvascular ischemia. Soft tissues are unremarkable. Paranasal sinuses and mastoid air cells are clear. IMPRESSION: No acute intracranial findings. Nile Moralez DO 06/27/20 [id number] Thank you for allowing us to participate in the care of your patient.
== END 2020-06-27 13:30 | disposition home or self-care (01) ==
LOC: KA.ED 11:26
DX: E87.5 Hyperkalemia (principal); R20.2 Paresthesia of skin; R00.1 Bradycardia, unspecified; I10 Essential (primary) hypertension; E78.00 Pure hypercholesterolemia, unspecified; E11.9 Type 2 diabetes mellitus without complications; Z87.891 Personal history of nicotine dependence; Z88.7 Allergy status to serum and vaccine; Z79.82 Long term (current) use of aspirin; Z79.899 Other long term (current) drug therapy
CPT/HCPCS: 36415; 70450; 71046; 80053; 82550; 82553; 84484; 85025; 93005; 99284; 99285-25

== ENCOUNTER 2020-07-06 10:27 | Observation (INO) | payer MEDICARE, OTHER ==
[2020-07-06] MEDS ORDERED: Zolpidem 5 MG Tab PO PRN (10:55)
[2020-07-06] MEDS ORDERED: HYDROmorphone 2 MG/ML SDV IVPUSH PRN (10:55)
[2020-07-06] MEDS ORDERED: Sodium Chloride 0.9% 10 ML Syringe FLUSH PRN (10:55)
[2020-07-06] MEDS ORDERED: Betamethasone Dipropionate 0.05% Crm 15 GM Tube TOP PRN (11:02)
[2020-07-06] MEDS ORDERED: Albuterol 8 GM Inhaler INH PRN (11:02)
[2020-07-06] MEDS ORDERED: Clotrimazole 1% Crm 30 GM Tube TOP PRN (11:29)
[2020-07-06] MEDS: Pantoprazole 40 MG Vial IVPUSH SCH ×2 (11:59→22:00)
[2020-07-06] MEDS ORDERED: Diatrizoate Meglumine/Diatrizoate Sodium 37% 30 ML Bottle PO ONE (13:30)
[2020-07-06] MEDS ORDERED: Iopamidol 755 Mg/ML 100 ML Bottle IV ONE (13:30)
[2020-07-06] MEDS ORDERED: Sodium Chloride 0.9% 50 ML IV SCH (13:30)
[2020-07-06] MEDS: Sodium Chloride 0.9% 1,000 ML IV SCH ×2 (14:00→22:00)
[2020-07-06] MEDS ORDERED: Simvastatin 20 MG Tab PO SCH (21:00)
[2020-07-06] MEDS ORDERED: Lisinopril 20 MG Tab PO SCH (21:00)
[2020-07-07] MEDS: Sodium Chloride 0.9% 1,000 ML IV SCH (06:09)
[2020-07-07 06:29] VITALS: BP 164/67; PULSE 63
[2020-07-07] MEDS ORDERED: Aspirin 81 MG Tab.EC PO SCH (09:00)
[2020-07-07] MEDS ORDERED: Fish Oil/Omega-3 Fatty Acids 1 Gm Cap PO SCH (09:00)
--- NOTE | 2020-07-24 22:22 | DISCH ---
This is a 69-year-old male who presented to the clinic with persistent abdominal pain. He was seen in the clinic on 07/06/2020, the day of his admission. He had been complaining of abdominal pain since 04/2020. He reported having continued abdominal pressure and nausea. He also describes some problems getting his breath at times. He feels as though the pain kind of goes up into his esophagus into the back of his throat and feels like it is closing up. The patient denies any change in his bowel habit. He had a bowel movement the day of his admission. He was unable to eat anything with the exception of two cups of Cream of Wheat. The patient has had five colonoscopies in the past. Approximately five years ago, he had a benign colon polyp. He was recently seen in the emergency room as well with a tingling sensation to his face and lower extremities with generalized weakness. All of that had resolved upon his arrival to the emergency room. I saw him in ER followup on 07/04/2020 and he complained of abdominal pain. He had lab work done to include a CBC, CMP, lipid panel, TSH, vitamin D as well as A1c. All values were acceptable with the exception of a low vitamin D of 20. He was scheduled for an abdominal ultrasound and have that performed the day prior to his admission. The liver was normal in size and echo texture. There was cholelithiasis without sonographic Gann's, gallbladder wall thickening or cholecystic fluid to suggest acute cholecystitis. Common bile duct was normal in diameter. The remainder of the abdominal organs were unremarkable with the exception of some nephrolithiasis. He did report that he had had a little bit darker stools than normal. The patient has a history of hypertension and is taking lisinopril and his blood pressure has been stable with this. He is on a daily aspirin regimen. He has had diabetes mellitus and is taking metformin with an A1c on 07/04/2020 of 5.2%. He has hypercholesterolemia, which is stable. He uses fish oil capsules. Surgical and social history have been reviewed. The patient continued to improve. I am concerned that this may be an upper GI issue and I will set him up as an outpatient with Dr. Manas Khalil to have an upper GI endoscopy on 07/11/2020. PHYSICAL EXAMINATION: VITAL SIGNS: Temp is 98.4, pulse 63, respirations 20, blood pressure 164/67, O2 saturation is 95% on room air. SKIN: Warm and dry to touch. CARDIAC: Reveals S1, S2 to be normal. Rate and rhythm are regular. No murmur, click, or gallop is auscultated. LUNGS: Clear. ABDOMEN: Soft, somewhat tender in the epigastrium and in the lower abdomen which he attributes to having diarrhea from the contrast dye from the CT scan yesterday. EXTREMITIES: There is no pedal edema. IMPRESSION: 1. Abdominal pain with documented cholelithiasis. I will set him up for an outpatient gastroscopy with Dr. Manas Khalil on 07/11/2020. The patient did have a chest CT as well as abdomen pelvis CT, which confirmed cholelithiasis. The patient was found to have coronary artery disease, which should probably be worked up in the future. He does have some changes in his lungs consistent with emphysema. 1. Hypertension, stable. 2. Diabetes mellitus, stable. 3. Hypercholesterolemia, stable. The patient is discharged with all the same medications he was admitted with. I did add Protonix 40 mg daily. Should he have any questions or concerns, he will notify me. I also prescribed an albuterol inhaler for him for the sensation of shortness of breath that he has been experiencing. /[id number]/MODL
== END 2020-07-07 09:32 | disposition home or self-care (01) ==
LOC: KA.MS 11:30 → UNDOADMOB 11:48 → KA.MS 11:48
DX: K80.20 Calculus of gallbladder without cholecystitis without obstruction (principal); I10 Essential (primary) hypertension; E11.9 Type 2 diabetes mellitus without complications; E78.00 Pure hypercholesterolemia, unspecified; R00.1 Bradycardia, unspecified; Z01.812 Encounter for preprocedural laboratory examination; Z20.822 Contact with and (suspected) exposure to COVID-19; Z79.82 Long term (current) use of aspirin; Z79.899 Other long term (current) drug therapy; Z79.84 Long term (current) use of oral hypoglycemic drugs; Z90.49 Acquired absence of other specified parts of digestive tract; Z88.7 Allergy status to serum and vaccine
CPT/HCPCS: 71260; 74177; 82150; 82272; 83690; 84484; 87338; 93005; 96374; 96376; 99217; 99220; A9270; C9113; G0378; J7030; Q9963; Q9967; U0002

== ENCOUNTER 2020-07-11 07:54 | Day surgery (SDC) | payer MEDICARE, OTHER ==
[~2020-07-11 07:54] MED LIST: Sodium Chloride 0.9% 1,000 ML IV SCH; Sodium Chloride 0.9% 10 ML Syringe FLUSH PRN
[2020-07-11] MEDS ORDERED: Propofol 200 MG/20 ML SDV IV ONE (07:55)
[2020-07-11] MEDS ORDERED: Glycopyrrolate 0.2 MG/ML SDV IVPUSH ONE (07:55)
[2020-07-11] MEDS ORDERED: Lidocaine 2% 100 MG/5 ML Syringe IVPUSH ONE (07:55)
[2020-07-11] MEDS ORDERED: Midazolam 1 MG/ML 2 ML SDV IV ONE (07:55)
[2020-07-11] MEDS ORDERED: Midazolam 1 MG/ML 2 ML SDV ONE (08:47)
[2020-07-11] MEDS ORDERED: Glycopyrrolate 0.2 MG/ML SDV ONE (08:48)
[2020-07-11] MEDS ORDERED: Propofol 200 MG/20 ML SDV ONE (08:48)
[2020-07-11] MEDS ORDERED: Lidocaine 2% 100 MG/5 ML Syringe ONE (08:48)
--- NOTE | 2020-07-11 09:05 | PCM.PN ---
- General Info Date of Service: 07/11/20 - Review of Systems Systems Review Comment:: 69-year-old male with 2-week history of upper abdominal pain and bloating referred for EGD. He is medically stable to proceed today. His recent history and physical is reviewed and no significant changes are noted. I have discussed the proposed EGD with the patient and he agrees to proceed excepting risks. Recent CT scan does document cholelithiasis. This may be contributing to symptoms. - Patient Data Vitals - Most Recent: Last Vital Signs Temp 98.3 F 07/11/20 08:07 Pulse 60 07/11/20 08:07 Resp 18 07/11/20 08:07 BP 144/82 H 07/11/20 08:07 Pulse Ox 96 07/11/20 08:07 Weight - Most Recent: 120.656 kg Lab Results Last 24 Hours: Laboratory Results - last 24 hr 07/11/20 Range/Units 08:19 POC Glucose 116 H (74-100) mg/dL Med Orders - Current: Current Medications Sodium Chloride (Normal Saline) 1,000 mls @ 50 mls/hr IV ASDIRECTED MELL Last Admin: 07/11/20 08:20 Dose: 50 mls/hr Documented by: Sodium Chloride (Saline Flush) 10 ml FLUSH Q8HR PRN PRN Reason: keep vein open Discontinued Medications Glycopyrrolate (Robinul) Confirm Administered Dose 0.6 mg .ROUTE .STK-MED ONE Stop: 07/11/20 08:49 Lidocaine HCl (Xylocaine 2%) Confirm Administered Dose 100 mg .ROUTE .STK-MED ONE Stop: 07/11/20 08:49 Midazolam HCl (Versed 1 Mg/Ml) Confirm Administered Dose 2 mg .ROUTE .STK-MED ONE Stop: 07/11/20 08:48 Propofol (Diprivan 20 Ml) Confirm Administered Dose 400 mg .ROUTE .STK-MED ONE Stop: 07/11/20 08:49 Sepsis Event Note - Focused Exam Vital Signs: Vital Signs Temp Pulse Resp BP Pulse Ox 07/11/20 08:07 98.3 F 60 18 144/82 H 96 - Problem List Review Problem List Initiated/Reviewed/Updated: Yes - My Orders Last 24 Hours: My Active Orders 07/11/20 07:30 Blood Glucose Check, Bedside [RC] UPON Patient to Empty Bladder [RC] ASDIRECTED Sodium Chloride 0.9% [Normal Saline] 1,000 ml IV ASDIRECTED Sodium Chloride 0.9% [Saline Flush] 10 ml FLUSH Q8HR PRN Peripheral IV Insertion Adult [OM.PC] Routine Resuscitation Status Routine 07/11/20 07:31 Peripheral IV Care [RC] . DIRECTED 07/11/20 Breakfast Nothing Per Oral Diet [DIET] 07/11/20 09:00 Verify Patient Consent Obtain [RC] ASDIRECTED - Assessment Assessment:: Abdominal pain Abdominal bloating - Plan Plan:: EGD
--- NOTE | 2020-07-11 09:30 | PCM.OPNOTE ---
- General Post-Op/Procedure Note Date of Surgery/Procedure: 07/11/20 Operative Procedure(s): EGD with Biopsy Findings: Normal appearing structures on EGD Pre Op Diagnosis: Abdominal pain and bloating Post-Op Diagnosis: Normal EGD Anesthesia Technique: MAC Primary Surgeon: Manas Khalil Pathology: Biopsies of Duodenum and Gastric Antrum EBL in mLs: 2 Complications: None Condition: Good
--- NOTE | 2020-07-11 13:35 | OR ---
DATE OF SURGERY: 07/11/2020 SURGEON: Manas Khalil MD PREOPERATIVE DIAGNOSIS: Abdominal pain and bloating. POSTOPERATIVE DIAGNOSIS: Normal upper endoscopy. OPERATION PERFORMED: Esophagogastroduodenoscopy with biopsy. INDICATIONS FOR SURGERY: This 69-year-old male is referred for upper endoscopy. He has been having symptoms of upper abdominal pain, bloating, and some nausea. CT scan has shown cholelithiasis. Upper endoscopy is planned to rule out other pathology. FINDINGS: Structures reviewed on upper endoscopy appeared normal. No visible signs of inflammation, ulcers, or anatomic variation was noted. PROCEDURE IN DETAIL: The patient was taken to the operating room. He was given intravenous sedation and with him in the left lateral decubitus position, the Olympus gastroscope was advanced through a mouth guard into the oral cavity. Under direct visualization, the scope was then advanced through the oropharynx and then down through the esophagus, stomach, and into the duodenum, where examination to the 4th portion is performed. Careful examination showed the duodenum to appear normal. Random biopsies of the duodenal mucosa are taken. The scope was withdrawn back into the stomach, where full examination including retroflexed examination of the fundus was carried out. Random biopsies of the antrum are taken to rule out H pylori. The GE junction and esophagus are also re-examined as the scope was withdrawn. After the examination had been completed and with no sign of any complication, the scope was removed and the patient was taken from the operating room in satisfactory condition. ESTIMATED BLOOD LOSS: 2 mL. COMPLICATIONS: None. PROGNOSIS: Good. /[id number]/MODL
[2020-07-11 13:37] VITALS: BP 129/70; PULSE 70
== END 2020-07-11 11:05 | disposition home or self-care (01) ==
LOC: KA.SDS 07:54
PROVIDERS: ATTEND Surgery
DX: K29.50 Unspecified chronic gastritis without bleeding (principal); K31.89 Other diseases of stomach and duodenum; I10 Essential (primary) hypertension; E11.9 Type 2 diabetes mellitus without complications; E78.00 Pure hypercholesterolemia, unspecified; K80.20 Calculus of gallbladder without cholecystitis without obstruction; R00.1 Bradycardia, unspecified; Z98.890 Other specified postprocedural states; Z79.82 Long term (current) use of aspirin; Z79.84 Long term (current) use of oral hypoglycemic drugs; Z88.7 Allergy status to serum and vaccine; Z79.899 Other long term (current) drug therapy
CPT/HCPCS: 00731; 82962; 88305; 88342; J2001; J2250; J2704; J3490; J7030

== ENCOUNTER 2020-07-30 09:56 | Emergency (ER) | payer MEDICARE, OTHER ==
--- NOTE | 2020-07-30 10:24 | EDM.PDOC ---
ED HPI GENERAL MEDICAL PROBLEM - General Chief Complaint: General Stated Complaint: shortness of breath Time Seen by Provider: 07/30/20 10:23 Source of Information: Reports: Patient - History of Present Illness INITIAL COMMENTS - FREE TEXT/NARRATIVE: Abiel, 69-year-old male, awoke this morning with significant shortness of breath. States the past 3 to 4 days has had some ringing in his ears that has been in moderation. Noted his hearing aids are 3- 4 years old. Gallbladder per laparoscopic removal roughly 2 weeks ago this coming week with no sequela from that. States his bowel movements have been every other day with no straining or issues since then. Denies any chest pain specifically nor any abdominal pain that is different than postsurgical issues. Has not had fever chills., States his appetite is slowly returning. Onset: Today, Gradual Duration: Hour(s): Location: Reports: Chest, Generalized Quality: Reports: Pressure Severity: Moderate Improves with: Reports: None Worsens with: Reports: Other (activity) Associated Symptoms: Reports: Other (post-surgical feeling/pressure to abdomen) - Related Data Allergies Allergy/AdvReac Type Severity Reaction Status Date / Time Tetanus Vaccines and Toxoid Allergy Muscle Verified 07/30/20 10:03 Aches Home Meds: Home Meds Aspirin [Halfprin] 162 mg PO DAILY 10/03/16 [History] Simvastatin [Zocor] 40 mg PO BEDTIME 10/03/16 [History] metFORMIN HCl [Metformin HCl] 500 mg PO BIDMEALS 10/03/16 [History] lisinopriL [Prinivil] 20 mg PO BID 04/18/20 [History] Albuterol [Ventolin HFA] 1 - 2 puff INH Q4HR PRN 07/06/20 [History] Betamethasone Dipropionate [Diprosone 0.05% Crm] 1 applic TOP ASDIRECTED PRN 07/06/20 [History] Clotrimazole 1 applic TOP ASDIRECTED PRN 07/06/20 [History] Fish Oil/Benzonia-3 Fatty Acids [Fish Oil 1,000 MG] 1 cap PO DAILY 07/06/20 [History] Past Medical History HEENT History: Reports: Hard of Hearing, Impaired Vision Cardiovascular History: Reports: High Cholesterol, Hypertension Respiratory History: Reports: None Gastrointestinal History: Reports: Hemorrhoids, Other (See Below) Other Gastrointestinal History: currently having nausea and some difficulty with swallowing foods. Musculoskeletal History: Reports: Back Pain, Chronic, Other (See Below) Psychiatric History: Reports: None Endocrine/Metabolic History: Reports: Diabetes, Type II Dermatologic History: Reports: Eczema - Infectious Disease History Infectious Disease History: Reports: Chicken Pox, Measles, Mumps - Past Surgical History Head Surgeries/Procedures: Reports: None HEENT Surgical History: Reports: Adenoidectomy, Tonsillectomy Cardiovascular Surgical History: Reports: None Respiratory Surgical History: Reports: None GI Surgical History: Reports: Appendectomy, Cholecystectomy, Colonoscopy, Other (See Below) Other GI Surgeries/Procedures: Hemmorrhoidectomy done 09/22/16. Male Surgical History: Reports: Cystectomy (2 weeks prior lap-colycystectomy) Endocrine Surgical History: Reports: None Neurological Surgical History: Reports: Lumbar Spine Other Neurological Surgeries/Procedures: april 1995 Musculoskeletal Surgical History: Reports: Shoulder Surgery Other Musculoskeletal Surgeries/Procedures:: back surgery in April 1995 - Past Imaging History Past Imaging History: Reports: MRI, Xray Social & Family History - Family History Family Medical History: No Pertinent Family History - Tobacco Use Tobacco Use Status *Q: Never Tobacco User Second Hand Smoke Exposure: No - Caffeine Use Caffeine Use: Reports: None - Recreational Drug Use Recreational Drug Use: No - Living Situation & Occupation Living situation: Reports: , with Spouse ED ROS GENERAL - Review of Systems Review Of Systems: Comprehensive ROS is negative, except as noted in HPI. ED EXAM, GENERAL - Physical Exam Exam: See Below Free Text/Narrative:: Alert, oriented, with no cyanosis nor pallor. HEENT shows poor dentition with hearing aids in place, removed showing no involvement of the auditory canals nor tympanic membranes. Dry oral membranes. Neck is soft supple with no lymphadenopathy, I do not appreciate any carotid bruit no JVD. Thorax is somewhat diminished left greater than right and more so at the bases bilateral with no wheezes nor crackles. Cardiac is bradycardic S1-S2 I do not appreciate any murmur. Abdomen shows mild bruising in the periumbilical region from his previous laparoscopic procedure as well as tenderness affiliated/associated with the procedure postsurgical. Bowel sounds are present. There is no edema to the extremities. rectal is deferred. #1 Interpretation EKG Date: 07/30/20 Time: 10:46 Rhythm: NSR Rate (Beats/Min): 49 (sinus bradycardia) [place]: Normal P-Wave: Present QRS: Normal ST-T: Normal QT: Normal Comparison: No Change Course - Vital Signs Last Recorded V/S: Last Vital Signs Temp 97.5 F 07/30/20 14:37 Pulse 48 L 07/30/20 14:37 Resp 19 07/30/20 14:37 BP 160/68 H 07/30/20 14:37 Pulse Ox 99 07/30/20 14:37 - Orders/Labs/Meds Orders: Active Orders 24 hr Category Date Time Status EKG Documentation Completion [RC] ASDIRECTED Care 07/30/20 10:38 Active Peripheral IV Care [RC] . DIRECTED Care 07/30/20 10:39 Active Chest w Cont [CT] Stat Exams 07/30/20 12:39 Stop Req CULTURE BLOOD [BC] Stat Lab 07/30/20 10:55 Received CULTURE BLOOD [BC] Stat Lab 07/30/20 11:10 Received Sodium Chloride 0.9% [Normal Saline] 100 ml Med 07/30/20 12:45 Active IV ASDIRECTED Sodium Chloride 0.9% [Saline Flush] Med 07/30/20 10:39 Active 10 ml FLUSH Q8HR PRN Blood Culture x2 Reflex Set [OM.PC] Stat Oth 07/30/20 10:40 Ordered Peripheral IV Insertion Adult [OM.PC] Routine Oth 07/30/20 10:39 Ordered EKG 12 Lead [EK] Urgent Ther 07/30/20 10:38 Ordered Medication Orders Sodium Chloride (Normal Saline) 100 mls @ 200 mls/min IV ASDIRECTED [facility] Last Admin: 07/30/20 13:20 Dose: 200 mls/min Documented by: MARQUES Sodium Chloride (Saline Flush) 10 ml FLUSH Q8HR PRN PRN Reason: keep vein open Labs: Laboratory Tests 07/30/20 07/30/20 07/30/20 Range/Units 10:54 11:10 11:10 WBC 9.65 (5.00-10.00) 10^3/uL RBC 5.15 (4.50-6.00) 10^6/uL Hgb 15.8 (13.0-17.0) g/dL Hct 45.6 (40.0-52.0) % MCV 88.5 (82.0-92.0) fL MCH 30.7 (27.0-31.0) pg MCHC 34.6 (32.0-36.0) g/dL RDW 12.9 (11.5-14.5) % Plt Count 270 (150-400) 10^3/uL MPV 10.4 (7.4-10.4) fL Immature Gran % (Auto) 0.1 (0.0-5.0) % Neut % (Auto) 67.1 (50.0-70.0) % Lymph % (Auto) 23.5 (20.0-40.0) % [place] % (Auto) 6.9 (2.0-8.0) % Eos % (Auto) 1.5 (1.0-3.0) % Baso % (Auto) 0.9 (0.0-1.0) % Neut # (Auto) 6.47 (2.50-7.00) 10^3/uL Lymph # (Auto) 2.27 (1.00-4.00) 10^3/uL [place] # (Auto) 0.67 (0.10-0.80) 10^3/uL Eos # (Auto) 0.14 (0.10-0.30) 10^3/uL Baso # (Auto) 0.09 (0.00-0.10) 10^3/uL Immature Gran # (Auto) 0.01 (0.00-0.50) 10^3/uL APTT (22.8-31.4) SEC D-Dimer, Quantitative (<400) ng/mL Sodium 139 (136-145) mmol/L Potassium 4.1 (3.5-5.1) mmol/L Chloride 103 (98-107) mmol/L Carbon Dioxide 25.1 (21.0-32.0) mmol/L Anion Gap 15.0 (5-15) mmol/L BUN 7 (7-18) mg/dL Creatinine 0.63 (0.51-1.17) mg/dL Est Cr Clr Drug Dosing 119.75 mL/min Estimated GFR (MDRD) > 60 mL/min Glucose 106 (70-140) mg/dL Lactic Acid (0.4-2.0) mmol/L Calcium 9.7 (8.7-10.3) mg/dL Total Bilirubin 0.9 (0.2-1.0) mg/dL AST 19 (15-37) U/L ALT 33 (14-63) U/L Alkaline Phosphatase 65 (46-116) U/L Troponin I < 0.017 (0.000-0.056) ng/mL B-Natriuretic Peptide 46 (0-100) pg/mL Total Protein 7.2 (6.4-8.2) g/dL Albumin 3.84 (3.40-5.00) g/dL SARS CoV-2 RNA Rapid EDY Negative (NEGATIVE) 07/30/20 07/30/20 Range/Units 11:10 11:10 WBC (5.00-10.00) 10^3/uL RBC (4.50-6.00) 10^6/uL Hgb (13.0-17.0) g/dL Hct (40.0-52.0) % MCV (82.0-92.0) fL MCH (27.0-31.0) pg MCHC (32.0-36.0) g/dL RDW (11.5-14.5) % Plt Count (150-400) 10^3/uL MPV (7.4-10.4) fL Immature Gran % (Auto) (0.0-5.0) % Neut % (Auto) (50.0-70.0) % Lymph % (Auto) (20.0-40.0) % [place] % (Auto) (2.0-8.0) % Eos % (Auto) (1.0-3.0) % Baso % (Auto) (0.0-1.0) % Neut # (Auto) (2.50-7.00) 10^3/uL Lymph # (Auto) (1.00-4.00) 10^3/uL [place] # (Auto) (0.10-0.80) 10^3/uL Eos # (Auto) (0.10-0.30) 10^3/uL Baso # (Auto) (0.00-0.10) 10^3/uL Immature Gran # (Auto) (0.00-0.50) 10^3/uL APTT 27.0 (22.8-31.4) SEC D-Dimer, Quantitative 1310 H (<400) ng/mL Sodium (136-145) mmol/L Potassium (3.5-5.1) mmol/L Chloride (98-107) mmol/L Carbon Dioxide (21.0-32.0) mmol/L Anion Gap (5-15) mmol/L BUN (7-18) mg/dL Creatinine (0.51-1.17) mg/dL Est Cr Clr Drug Dosing mL/min Estimated GFR (MDRD) mL/min Glucose (70-140) mg/dL Lactic Acid 3.0 H (0.4-2.0) mmol/L Calcium (8.7-10.3) mg/dL Total Bilirubin (0.2-1.0) mg/dL AST (15-37) U/L ALT (14-63) U/L Alkaline Phosphatase (46-116) U/L Troponin I (0.000-0.056) ng/mL B-Natriuretic Peptide (0-100) pg/mL Total Protein (6.4-8.2) g/dL Albumin (3.40-5.00) g/dL SARS CoV-2 RNA Rapid DEY (NEGATIVE) Meds: Medications Generic Name Dose Route Start Last Admin Trade Name Freq PRN Reason Stop Dose Admin Sodium Chloride 100 mls @ 200 mls/min 07/30/20 12:45 07/30/20 13:20 Normal Saline IV 200 mls/min ASDIRECTED MELL Administration Sodium Chloride 10 ml 07/30/20 10:39 Saline Flush FLUSH Q8HR PRN keep vein open Discontinued Medications Generic Name Dose Route Start Last Admin Trade Name Freq PRN Reason Stop Dose Admin Sodium Chloride 1,000 mls @ 999 mls/hr 07/30/20 12:48 07/30/20 13:04 Normal Saline IV 07/30/20 13:48 999 mls/hr .BOLUS ONE Administration Iopamidol 75 ml 07/30/20 12:44 07/30/20 13:20 Isovue-370 (76%) IVPUSH 07/30/20 12:45 75 ml ONETIME ONE Administration - Re-Assessments/Exams Free Text/Narrative Re-Assessment/Exam: 07/30/20 12:35 I went in to reassess Abiel and inform him his COVID-19 test returned negative as well as all other tests other than his lactic acid 7 D-dimer being normal. I attribute the elevated lactic acid secondary of his recent liver interruption secondary of his gallbladder surgery. At this time he states "well what is wrong with me if the tests are normal. I continue to have a frothing in my mouth and throat which leads to waking up and drinking water throughout the night and during the day." He tells me the only time this improved, was when he was placed on a azithromycin Z-Pawel, but it only improved for a few days then recurred. I told him I would try review the clinic chart as it was not appropriately working this morning to allow me access to his clinic record. 07/30/20 12:[address] with contrast/CTA to rule out pulmonary embolism due to his attributed breathing issues although it could also be an elevated D-dimer due to his recent surgery. Departure - Departure Time of Disposition: 14:35 Disposition: Home, Self-Care 01 Condition: Good Clinical Impression: Bradycardia, D-dimer, elevated, Centrilobular emphysema, CAD (coronary artery disease), Pulmonary nodule - Discharge Information *PRESCRIPTION DRUG MONITORING PROGRAM REVIEWED*: Not Applicable *COPY OF PRESCRIPTION DRUG MONITORING REPORT IN PATIENT KIMBER: Not Applicable Referrals: Christina Cohen PA-C [Primary Care Provider] - Forms: ED Department Discharge Additional Instructions: The elevation of your lactic acid as well as D-dimer are likely related to your recent gallbladder surgery. The remainder of your test results are normal, with normal chest x-ray and no pulmonary embolus seen on the CT angiogram of your chest. With all of these findings as listed, and the fact you state you wake up with frothy or foamy sputum feeling in your mouth, it is very likely that you may have sleep apnea. This can attribute to what is awakening you during the night as well as how you feel throughout the day. You need to continue your medications as directed. Drink plenty of water to make sure you flush out the IV contrast that was given for your scan. Contact the clinic in the morning to arrange for an appointment with Christina or Dr. Bowling to discuss sleep apnea and to get an official work-up started for sleep apnea testing. Call the clinic when they open in the morning. Call or return to the hospital if anything should recur severe changes or other concerns prior to the clinical opening in the morning. Sepsis Event Note (ED) - Evaluation Sepsis Screening Result: No Definite Risk - Focused Exam Vital Signs: Vital Signs Temp Pulse Resp BP Pulse Ox 07/30/20 14:37 97.5 F 48 L 19 160/68 H 99 07/30/20 14:08 51 L 20 179/79 H 98 07/30/20 13:24 97.3 F 52 L 20 170/69 H 99 07/30/20 13:03 51 L 18 177/81 H 98 07/30/20 12:01 53 L 18 166/71 H 98 07/30/20 11:20 97.2 F 53 L 18 178/80 H 98 07/30/20 11:04 51 L 17 191/80 H 99 07/30/20 10:31 52 L 16 183/80 H 97 07/30/20 10:01 51 L 18 166/80 H 98 07/30/20 09:58 96.8 F L 51 L 18 176/81 H 98 - Problem List & Annotations (1) Bradycardia SNOMED Code(s): 18850407 Code(s): R00.1 - BRADYCARDIA, UNSPECIFIED Status: Acute Current Visit: Yes (2) D-dimer, elevated SNOMED Code(s): 396563602 Code(s): R79.89 - OTHER SPECIFIED ABNORMAL FINDINGS OF BLOOD CHEMISTRY Status: Acute Current Visit: Yes (3) Pulmonary nodule SNOMED Code(s): 994416328 Code(s): R91.1 - SOLITARY PULMONARY NODULE Status: Chronic Priority: Medium Current Visit: Yes (4) Centrilobular emphysema SNOMED Code(s): 67820627 Code(s): J43.2 - CENTRILOBULAR EMPHYSEMA Status: Chronic Priority: Medium Current Visit: Yes (5) CAD (coronary artery disease) SNOMED Code(s): 69461297 Code(s): I25.10 - ATHSCL HEART DISEASE OF [place] CORONARY ARTERY W/O ANG PCTRS Status: Chronic Priority: Medium Current Visit: Yes Qualifiers: Coronary Disease-Associated Artery/Lesion type: unspecified vessel or lesion type [place] vs. transplanted heart: [place] heart Associated angina: without angina Qualified Code(s): I25.10 - Atherosclerotic heart disease of [place] coronary artery without angina pectoris (6) History of snoring SNOMED Code(s): 674654469 Code(s): Z87.898 - PERSONAL HISTORY OF OTHER SPECIFIED CONDITIONS Status: Chronic Priority: High Current Visit: Yes Annotation/Comment:: Sleep study to rule out sleep apnea which would attribute to several of his complaints. - Problem List Review Problem List Initiated/Reviewed/Updated: Yes - My Orders Last 24 Hours: My Active Orders 07/30/20 10:38 EKG Documentation Completion [RC] ASDIRECTED EKG 12 Lead [EK] Urgent 07/30/20 10:39 Peripheral IV Care [RC] . DIRECTED Sodium Chloride 0.9% [Saline Flush] 10 ml FLUSH Q8HR PRN Peripheral IV Insertion Adult [OM.PC] Routine 07/30/20 10:40 Blood Culture x2 Reflex Set [OM.PC] Stat 07/30/20 10:55 CULTURE BLOOD [BC] Stat 07/30/20 11:10 CULTURE BLOOD [BC] Stat 07/30/20 12:39 Chest w Cont [CT] Stat 07/30/20 12:45 Sodium Chloride 0.9% [Normal Saline] 100 ml IV ASDIRECTED - Assessment/Plan Last 24 Hours: My Active Orders 07/30/20 10:38 EKG Documentation Completion [RC] ASDIRECTED EKG 12 Lead [EK] Urgent 07/30/20 10:39 Peripheral IV Care [RC] . DIRECTED Sodium Chloride 0.9% [Saline Flush] 10 ml FLUSH Q8HR PRN Peripheral IV Insertion Adult [OM.PC] Routine 07/30/20 10:40 Blood Culture x2 Reflex Set [OM.PC] Stat 07/30/20 10:55 CULTURE BLOOD [BC] Stat 07/30/20 11:10 CULTURE BLOOD [BC] Stat 07/30/20 12:39 Chest w Cont [CT] Stat 07/30/20 12:45 Sodium Chloride 0.9% [Normal Saline] 100 ml IV ASDIRECTED Plan: The elevation of your lactic acid as well as D-dimer are likely related to your recent gallbladder surgery. The remainder of your test results are normal, with normal chest x-ray and no pulmonary embolus seen on the CT angiogram of your chest. With all of these findings as listed, and the fact you state you wake up with frothy or foamy sputum feeling in your mouth, it is very likely that you may have sleep apnea. This can attribute to what is awakening you during the night as well as how you feel throughout the day. You need to continue your medications as directed. Drink plenty of water to make sure you flush out the IV contrast that was given for your scan. Contact the clinic in the morning to arrange for an appointment with Christina or Dr. Bowling to discuss sleep apnea and to get an official work-up started for sleep apnea testing. Call the clinic when they open in the morning. Call or return to the hospital if anything should recur severe changes or other concerns prior to the clinical opening in the morning.
[2020-07-30] MEDS ORDERED: Sodium Chloride 0.9% 10 ML Syringe FLUSH PRN (10:39)
--- NOTE | 2020-07-30 10:51 | CR ---
[id number] RAD/RAD Chest PA or AP 1V EXAM: RAD Chest PA or AP 1V INDICATION: COVID PRECAUTION. SHORTNESS OF BREATH. COMPARISON: June 27, 2020. DISCUSSION: Cardiomediastinal silhouette is normal in size and contour. No infiltrate, effusion, pneumothorax, or edema. Pulmonary hyperinflation. IMPRESSION: No acute cardiopulmonary abnormality. Nile Moralez DO 07/30/20 1050 Thank you for allowing us to participate in the care of your patient.
[2020-07-30 11:48] LABS: CHLORIDE,CL 103 mmol/L (98-107); SODIUM,NA 139 mmol/L (136-145)
[2020-07-30] MEDS ORDERED: Iopamidol 755 Mg/ML 75 ML Bottle IVPUSH ONE (12:44)
[2020-07-30] MEDS ORDERED: Sodium Chloride 0.9% 100 ML IV SCH (12:45)
[2020-07-30] MEDS ORDERED: Sodium Chloride 0.9% 1,000 ML IV ONE (12:48)
--- NOTE | 2020-07-30 13:56 | CT ---
[id number] CT/CTA Chest EXAM: CT ANGIOGRAM CHEST INDICATION: ELEVATED D-DIMER COMPARISON: None. DISCUSSION: The pulmonary arteries are normal in appearance with no emboli identified. Stable 0.5 cm noncalcified pulmonary nodule along the right minor fissure likely represents a lymph node. No new suspicious pulmonary nodules or masses. No confluent airspace consolidation. Moderate predominantly centrilobular emphysema. Dependent atelectasis at the lung bases bilaterally.No pleural or pericardial effusion. Coronary artery disease. Atherosclerotic calcifications of the aorta and its branches. No mediastinal, hilar or axillary lymphadenopathy. The gallbladder is surgically absent. IMPRESSION: 1. No evidence of acute pulmonary embolism. Nile Moralez DO 07/30/20 3721 Thank you for allowing us to participate in the care of your patient.
[2020-07-30 14:38] VITALS: BP 160/68; PULSE 48
== END 2020-07-30 14:58 | disposition home or self-care (01) ==
LOC: KA.ED 09:56
DX: I25.10 Atherosclerotic heart disease of native coronary artery without angina pectoris (principal); J43.2 Centrilobular emphysema; R79.1 Abnormal coagulation profile; R00.1 Bradycardia, unspecified; R91.1 Solitary pulmonary nodule; I10 Essential (primary) hypertension; E78.00 Pure hypercholesterolemia, unspecified; E11.9 Type 2 diabetes mellitus without complications; Z20.822 Contact with and (suspected) exposure to COVID-19; Z88.7 Allergy status to serum and vaccine; Z79.82 Long term (current) use of aspirin; Z79.84 Long term (current) use of oral hypoglycemic drugs; Z79.899 Other long term (current) drug therapy
CPT/HCPCS: 36415; 71045; 71275; 80053; 83605; 83880; 84484; 85025; 85379; 85730; 87040; 93005; 99284; 99285-25; J7030; Q9967; U0002

== ENCOUNTER 2020-09-05 10:55 | Day surgery (SDC) | payer MEDICARE, OTHER ==
[2020-09-05] MEDS: Sodium Chloride 0.9% 10 ML Syringe FLUSH PRN (11:25)
[2020-09-05] MEDS: Sodium Chloride 0.9% 1,000 ML IV SCH (11:25)
[2020-09-05] MEDS ORDERED: Midazolam 1 MG/ML 2 ML SDV ONE (11:26)
[2020-09-05] MEDS ORDERED: Propofol 200 MG/20 ML SDV ONE (11:26)
--- NOTE | 2020-09-05 11:32 | PCM.PN ---
- General Info Date of Service: 09/05/20 - Review of Systems Systems Review Comment:: 69-year-old male referred for colonoscopy. He has been having symptoms of lower abdominal pain as well as a change in bowel pattern with significant constipation. He has had upper endoscopy as well as cholecystectomy. His last colonoscopy was about 7 years ago. He is medically stable to proceed today. His recent history and physical is reviewed and no significant changes are noted. I have discussed the proposed colonoscopy with the patient. He agrees to proceed accepting risks. - Patient Data Vitals - Most Recent: Last Vital Signs Temp 97.4 F 09/05/20 11:09 Pulse 70 09/05/20 11:09 Resp 18 09/05/20 11:09 BP 159/67 H 09/05/20 11:26 Pulse Ox 95 09/05/20 11:09 Weight - Most Recent: 117.027 kg Lab Results Last 24 Hours: Laboratory Results - last 24 hr 09/05/20 Range/Units 11:12 POC Glucose 123 H (74-106) mg/dl Med Orders - Current: Current Medications Sodium Chloride (Normal Saline) 1,000 mls @ 50 mls/hr IV ASDIRECTED [facility] Last Admin: 09/05/20 11:25 Dose: 50 mls/hr Documented by: Sodium Chloride (Sodium Chloride 0.9% 10 Ml Syringe) 10 ml FLUSH Q8HR PRN PRN Reason: keep vein open Last Admin: 09/05/20 11:25 Dose: 10 ml Documented by: Discontinued Medications Midazolam HCl (Midazolam 1 Mg/Ml 2 Ml Sdv) Confirm Administered Dose 2 mg .ROUTE .STK-MED ONE Stop: 09/05/20 11:27 Propofol (Propofol 200 Mg/20 Ml Sdv) Confirm Administered Dose 200 mg .ROUTE .STK-MED ONE Stop: 09/05/20 11:27 - Patient Data Lab Results Last 24 hrs: Laboratory Results - last 24 hr 09/05/20 Range/Units 11:12 POC Glucose 123 H (74-106) mg/dl Sepsis Event Note - Focused Exam Vital Signs: Vital Signs Temp Pulse Resp BP Pulse Ox 09/05/20 11:26 159/67 H 09/05/20 11:09 97.4 F 70 18 181/82 H 95 - Problem List Review Problem List Initiated/Reviewed/Updated: Yes - My Orders Last 24 Hours: My Active Orders 09/04/20 14:09 Resuscitation Status Routine 09/05/20 Breakfast Nothing Per Oral Diet [DIET] 09/05/20 11:00 Blood Glucose Check, Bedside [RC] UPON Peripheral IV Care [RC] . DIRECTED Sodium Chloride 0.9% [Normal Saline] 1,000 ml IV ASDIRECTED Sodium Chloride 0.9% [Saline Flush] 10 ml FLUSH Q8HR PRN Peripheral IV Insertion Adult [OM.PC] Routine 09/05/20 11:30 Patient to Empty Bladder [RC] ASDIRECTED 09/05/20 12:00 Verify Patient Consent Obtain [RC] ASDIRECTED - Assessment Assessment:: Change in bowel pattern - Plan Plan:: Colonoscopy
--- NOTE | 2020-09-05 12:12 | PCM.OPNOTE ---
- General Post-Op/Procedure Note Date of Surgery/Procedure: 09/05/20 Operative Procedure(s): Colonoscopy with Polypectomy Findings: Multiple small colon polyps Moderate diverticulosis throughout the colon but without inflammation or stenosis Pre Op Diagnosis: Change in bowel habits Post-Op Diagnosis: Colon Polyps. Diverticulosis Anesthesia Technique: MAC Primary Surgeon: Manas Khalil Pathology: Colon Polyps EBL in mLs: 0 Complications: None Condition: Good
--- NOTE | 2020-09-05 12:50 | OR ---
DATE OF SURGERY: 09/05/2020 SURGEON: Manas Khalil MD PREOPERATIVE DIAGNOSIS: Change in bowel habits with abdominal pain. POSTOPERATIVE DIAGNOSIS: Colon polyps, diverticulosis. OPERATION PERFORMED: Colonoscopy with polypectomy. INDICATIONS FOR SURGERY: This 69-year-old male has noticed a change in bowel pattern with recent profound constipation. He is also having some lower abdominal pain. It has been several years since his last colonoscopy and he comes for this exam. FINDINGS: Three polyps are noted during the exam today. One is a 4 mm semipedunculated polyp in the rectum 1 cm from the anal verge. There is a 7 mm sessile polyp in the hepatic flexure and a 4 mm sessile polyp in the ascending colon. The patient also has a moderate degree of diverticulosis scattered throughout the colon, although this does not appear to be acutely inflamed and there is no indication of any stenosis in the colon. The colon otherwise appears normal. DESCRIPTION OF PROCEDURE: The patient was taken to the operating room. He was given intravenous sedation and with him in the left lateral decubitus position, digital rectal exam was performed showing no rectal masses. The Olympus colonoscope was inserted into the rectum. Retroflexed examination of the rectal canal is performed. The above-described rectal polyp is identified and this was removed completely with the cold biopsy forceps and retrieved. The scope was then carefully advanced under direct visualization to the hepatic flexure where the polyp in this area is identified. This was removed with a cautery snare and retrieved into a polyp trap. The scope was then carefully advanced onto the cecum where cecal acquisition is confirmed by noting the normal internal cecal anatomy including appendiceal orifice and ileocecal valve. The light was also noted to transilluminate the abdominal wall, right lower quadrant. After examining the cecum, the scope was slowly withdrawn and the small ascending colon polyp was identified. This was destroyed with the use of cautery and no specimen was retrieved at this level. Examination is then continued and completed with the entire colon and rectum being fully examined. The scope was then removed, and the patient was taken from the operating room in satisfactory condition. ESTIMATED BLOOD LOSS: 0. COMPLICATIONS: None. PROGNOSIS: Good. /[id number]/MODL
[2020-09-05 12:55] VITALS: BP 149/79; PULSE 58
== END 2020-09-05 13:05 | disposition home or self-care (01) ==
LOC: KA.SDS 10:55
PROVIDERS: ATTEND Surgery
DX: D12.3 Benign neoplasm of transverse colon (principal); K62.1 Rectal polyp; K57.30 Diverticulosis of large intestine without perforation or abscess without bleeding; I10 Essential (primary) hypertension; E11.9 Type 2 diabetes mellitus without complications; K21.9 Gastro-esophageal reflux disease without esophagitis; E78.00 Pure hypercholesterolemia, unspecified; J44.9 Chronic obstructive pulmonary disease, unspecified; Z79.82 Long term (current) use of aspirin; Z88.7 Allergy status to serum and vaccine; Z79.84 Long term (current) use of oral hypoglycemic drugs
CPT/HCPCS: 00811; 82962; 88305; J2250; J2704; J7030

== ENCOUNTER 2020-09-12 10:52 | Inpatient (IN) | payer MEDICARE, OTHER ==
[2020-09-12 11:33] LABS: ANION GAP 17.7 mmol/L (5-15); CHLORIDE,CL 102 mmol/L (98-107); SODIUM,NA 138 mmol/L (136-145)
[2020-09-12] MEDS ORDERED: Sodium Chloride 0.9% 10 ML Syringe FLUSH PRN (13:17)
[2020-09-12] MEDS: Albuterol/Ipratropium 3.0-0.5 MG/3 ML Neb Soln NEB SCH ×3 (14:30→21:32)
[2020-09-12] MEDS ORDERED: Iopamidol 755 Mg/ML 100 ML Bottle IV ONE (14:37)
[2020-09-12] MEDS ORDERED: Diatrizoate Meglumine/Diatrizoate Sodium 37% 30 ML Bottle PO ONE (14:37)
[2020-09-12] MEDS ORDERED: Sodium Chloride 0.9% 50 ML IV SCH (14:45)
[2020-09-12] MEDS ORDERED: CLOTRIMAZOLE TOP PRN (15:26)
[2020-09-12] MEDS ORDERED: Non-Formulary Medication 1 Each (Betamethasone Dipropionate [Diprosone 0.05% Crm] 15 GM Tu TOP PRN (15:26)
--- NOTE | 2020-09-12 15:37 | CT ---
[id number] CT/CT Abdomen Pelvis W IV EXAM: CT Abdomen Pelvis W IV CLINICAL DATA: BLOOD IN STOOL; RECENT COLONOSCOPY. COMPARISON STUDY: July 06, 2020. FINDINGS: Lung bases are clear. Liver, spleen, pancreas, and adrenal glands are unremarkable. 48 x 51 x 51 mm simple cortical cyst in the left kidney. Multiple additional smaller cysts in both kidneys as well. No solid or enhancing renal lesions. No hydronephrosis. Colonic diverticulosis. No evidence of acute diverticulitis. Negative for colitis or diverticulitis. No evidence of bowel perforation. No small bowel obstruction or inflammation. No lymphadenopathy in the abdomen or pelvis. Spondylosis. No acute fracture or compression deformity. IMPRESSION: No acute findings in the abdomen or pelvis. Etiology of hematochezia is not radiographically evident. Other findings are described above. Madhu Birmingham MD 09/12/20 4225 Thank you for allowing us to participate in the care of your patient.
[2020-09-12] MEDS ORDERED: ALBUTEROL INH PRN (15:39)
[2020-09-12] MEDS ORDERED: ALPRAZolam 0.25 MG Tab PO PRN (15:39)
[2020-09-12] MEDS ORDERED: traMADol 50 MG Tab - PTOM PO PRN (15:44)
[2020-09-12] MEDS: Amoxicillin/Clavulanate K 875-125 MG Tab PO SCH (17:42)
[2020-09-12] MEDS ORDERED: metFORMIN 500 MG Tab - PTOM PO SCH (18:00)
[2020-09-12] MEDS: Budesonide 0.5 MG/2 ML Neb Susp NEB SCH (19:32)
[2020-09-12] MEDS: Fluticasone Propionate Nasal Spray 16 GM Bottle NASBOTH SCH (21:29)
[2020-09-12] MEDS: PANTOPRAZOLE 40 MG PO SCH (21:31)
[2020-09-12] MEDS: LISINOPRIL 20 MG PO SCH (21:31)
[2020-09-12] MEDS: SIMVASTATIN 40 MG PO SCH (21:31)
[2020-09-13] MEDS: Albuterol/Ipratropium 3.0-0.5 MG/3 ML Neb Soln NEB SCH ×3 (02:48→10:24)
[2020-09-13 07:45] LABS: ANION GAP 13.5 mmol/L (5-15); CHLORIDE,CL 105 mmol/L (98-107); SODIUM,NA 140 mmol/L (136-145)
[2020-09-13] MEDS: Amoxicillin/Clavulanate K 875-125 MG Tab PO SCH ×2 (08:10→17:50)
[2020-09-13] MEDS: Fish Oil/Omega-3 Fatty Acids 1 Gm Cap PO SCH (08:11)
[2020-09-13] MEDS: Fluticasone Propionate Nasal Spray 16 GM Bottle NASBOTH SCH ×2 (08:11→20:34)
[2020-09-13] MEDS: PANTOPRAZOLE 40 MG PO SCH ×2 (08:16→20:34)
[2020-09-13] MEDS: LISINOPRIL 20 MG PO SCH ×2 (08:18→20:33)
[2020-09-13] MEDS: PREDNISONE 20 MG PO SCH (08:19)
[2020-09-13] MEDS ORDERED: Aspirin 81 MG Tab.EC PO SCH (09:00)
[2020-09-13] MEDS: Budesonide 0.5 MG/2 ML Neb Susp NEB SCH (10:24)
[2020-09-13] MEDS ORDERED: Sodium Phosphate,Monobasic/Sodium Phosphate,Dibasic Enema 133 ML Bottle RECTAL ONE ×2 (11:41→12:12)
[2020-09-13] MEDS: Sodium Chloride 0.9% 1,000 ML IV SCH ×2 (11:49→17:30)
[2020-09-13] MEDS ORDERED: Propofol 200 MG/20 ML SDV ONE (13:40)
[2020-09-13] MEDS ORDERED: Midazolam 1 MG/ML 2 ML SDV ONE (13:40)
[2020-09-13] MEDS ORDERED: Ketamine 200 MG/20 ML MDV ONE (14:07)
--- NOTE | 2020-09-13 14:19 | PCM.OPNOTE ---
- General Post-Op/Procedure Note Date of Surgery/Procedure: 09/13/20 Operative Procedure(s): Upper and lower GI endoscopy. Findings: Old blood was seen throughout the lower GI tract all the way to the cecum. Multiple diverticuli were seen. No active bleeding was seen from the diverticuli although some of the diverticuli had blood in them. There was also some inflammation of the mucous membrane of the sigmoid and descending colon. Pre Op Diagnosis: Moderate to massive rectal bleeding following colonoscopy and polypectomy x3 1 week ago. The patient dropped 2 g of hemoglobin. lower GI endoscopy is being proposed. Lower GI endoscopy did not reveal a source of b leeding. The blood was present upto the cecum. Question upper GI bleeding. Upper GI endoscopy did not reveal any active bleeding. Question bleeding from small intestine. Anesthesia Technique: MAC Primary Surgeon: Ivelisse August Complications: None Condition: Good Free Text/Narrative:: Intake & Output 09/12/20 09/13/20 09/13/20 22:59 06:59 14:59 Intake Total 550 600 Balance 550 600 INFORMED CONSENT: Patient is here today for elective colonoscopy. All aspects of this procedure have been discussed with the patient. All possible complications also, including possibility of perforation, infection, pain, bleeding and unknown complications. In the event of perforation patient may need to have abdominal exploration, colon resection, colostomy and even was discussed. Anesthetic complications were handled by anesthesia department. The patient understands fully well. Patient did not have any further questions for me at the end of my interview. The patient wishes for me to proceed. PREOPERATIVE DIAGNOSIS/INDICATIONS: [Lower GI bleeding following recent colonoscopy 1 week ago and polypectomy.] POSTOPERATIVE DIAGNOSIS: [Lot of old blood present throughout the colon even at the cecum. Multiple diverticuli were seen. No active bleeding noted.] INSTRUMENT USED: Cardinal Midstream videocolonoscope. ASA CLASSIFICATION: [2] ANESTHESIA: Continuous EKG, oximetry and intermittent blood pressure and respiratory monitoring were performed throughout the procedure. IV Versed and Fentanyl were administered. PROCEDURE PERFORMED: Colonoscopy POSITIONS OF PATIENT: Left lateral. RECTUM: Normal. SIGMOID COLON: Old blood was present. Few diverticuli were present but no active bleeding from the diverticuli.. DESCENDING COLON: Old blood was present. No active bleeding.. SPLENIC FLEXURE: Old blood was present.. TRANSVERSE COLON: Old blood was present.. HEPATIC FLEXURE: Old blood was present.. ASCENDING COLON: Old blood was present.. CECUM: Old blood was present.. ILEOCECAL VALVE: Normal. BIOPSY: None. TOLERANCE: Excellent. COMPLICATIONS: None. All blood was present throughout the colon even at the cecum. Multiple diverticuli were seen without bleeding. Biopsy sites did not reveal any bleeding. Question upper GI bleeding. INFORMED CONSENT: Patient is here today for elective upper GI endoscopy. All aspects of this procedure have been discussed with the patient. All possible complications also, including possibility of perforation, infection, pain, bleeding, numbness of the throat, swallowing difficulty and unknown complications. In the event of perforation the patient may need surgical exploration to repair the defect. The patient understands fully well. Patient did not have any further questions for me at the end of my interview. The patient wishes for me to proceed. INSTRUMENT USED: Video gastroscope ANESTHESIA: [MAC] ASA CLASSIFICATION: [2] PROCEDURE PERFORMED: [Upper gastrointestinal endoscopy was performed as no lesion or reason for the bleeding could be identified during the lower GI examination.] PHARYNX: Normal. ESOPHAGUS: Normal. Proximal: Normal. Middle: Normal. Lower: Normal. GE Junction: Normal. STOMACH: Normal. Cardia: Normal. Fundus: Normal. Lesser Curvature: Normal. Greater Curvature: Normal. Antrum: Normal. Pylorus: Normal. DUODENUM: Normal. First Part: Normal. Second Part: Normal. Third Part: Normal. RETROFLEXION: Normal. BIOPSY: None. TOLERANCE: Excellent. COMPLICATIONS: None. No lesion was identified.
[2020-09-13] MEDS ORDERED: Glycopyrrolate 0.2 MG/ML SDV IVPUSH ONE (14:30)
--- NOTE | 2020-09-13 15:54 | PCM.PN ---
- General Info Date of Service: 09/13/20 Admission Dx/Problem (Free Text): BRBPR - Review of Systems Systems Review Comment:: Abiel is seen today on observation rounds. He was admitted 09/12/2020 from the clinic with weakness, SOB and BRBPR after a colonoscopy with polypectomy on . Hemoglobin was 15 upon admission but he was having multiple loose stools with flip blood. He had some mild abdominal pain. CT of the abdomen/pelvis with IV and oral contrast was obtained on 09/12 that showed no perforations or other etiology to explain the blood in the stool. This morning when I saw him on round she had left a BM in the toilet that was johnson red in color with loose stool pieces. He was having minimal pain this morning. Hemoglobin this AM was 13. He was, however, much less SOB. He states "I just don't feel good". I was concerned that he may be bleeding from a polypectomy site, perhaps the one near the anal verge, and recommended he undergo repeat evaluation. Dr. Paula August happened to be doing procedure today and he was able to repeat his colonoscopy today. Abiel was in agreement with this. He noted old blood, but no active bleeding lesions, he also did upper GI endoscopy to rule out brick bleeding ulcer and his upper GI endoscopy was normal. When I see him after his procedure this afternoon he reports feeling OK. He is anxious to resume eating. - Patient Data Vitals - Most Recent: Last Vital Signs Temp 97.5 F 09/13/20 15:00 Pulse 56 L 09/13/20 15:30 Resp 16 09/13/20 15:30 BP 150/76 H 09/13/20 15:30 Pulse Ox 94 L 09/13/20 15:30 Weight - Most Recent: 248 lb 9.6 oz I&O - Last 24 Hours: Intake & Output 09/13/20 09/13/20 09/13/20 06:59 14:59 22:59 Intake Total 600 400 Balance 600 400 Lab Results Last 24 Hours: Laboratory Results - last 24 hr 09/12/20 09/13/20 09/13/20 Range/Units 17:40 07:05 07:05 WBC 9.90 (5.00-10.00) 10^3/uL RBC 4.45 L (4.50-6.00) 10^6/uL Hgb 13.6 D (13.0-17.0) g/dL Hct 39.8 L (40.0-52.0) % MCV 89.4 (82.0-92.0) fL MCH 30.6 (27.0-31.0) pg MCHC 34.2 (32.0-36.0) g/dL RDW 12.8 (11.5-14.5) % Plt Count 269 (150-400) 10^3/uL MPV 10.4 (7.4-10.4) fL Immature Gran % (Auto) 0.3 (0.0-5.0) % Neut % (Auto) 56.7 (50.0-70.0) % Lymph % (Auto) 33.8 (20.0-40.0) % Bryan % (Auto) 7.7 (2.0-8.0) % Eos % (Auto) 1.0 (1.0-3.0) % Baso % (Auto) 0.5 (0.0-1.0) % Neut # (Auto) 5.61 (2.50-7.00) 10^3/uL Lymph # (Auto) 3.35 (1.00-4.00) 10^3/uL Bryan # (Auto) 0.76 (0.10-0.80) 10^3/uL Eos # (Auto) 0.10 (0.10-0.30) 10^3/uL Baso # (Auto) 0.05 (0.00-0.10) 10^3/uL Immature Gran # (Auto) 0.03 (0.00-0.50) 10^3/uL Sodium 140 (136-145) mmol/L Potassium 3.7 (3.5-5.1) mmol/L Chloride 105 (98-107) mmol/L Carbon Dioxide 25.2 (21.0-32.0) mmol/L Anion Gap 13.5 (5-15) mmol/L BUN 13 (7-18) mg/dL Creatinine 0.73 (0.51-1.17) mg/dL Est Cr Clr Drug Dosing 103.35 mL/min Estimated GFR (MDRD) > 60 mL/min Glucose 109 (70-140) mg/dL POC Glucose 92 (74-106) mg/dl Calcium 8.6 L (8.7-10.3) mg/dL Total Bilirubin 0.7 (0.2-1.0) mg/dL AST 19 (15-37) U/L ALT 37 (14-63) U/L Alkaline Phosphatase 55 (46-116) U/L Total Protein 6.1 L (6.4-8.2) g/dL Albumin 3.28 L (3.40-5.00) g/dL 09/13/20 09/13/20 Range/Units 07:53 12:32 WBC (5.00-10.00) 10^3/uL RBC (4.50-6.00) 10^6/uL Hgb (13.0-17.0) g/dL Hct (40.0-52.0) % MCV (82.0-92.0) fL MCH (27.0-31.0) pg MCHC (32.0-36.0) g/dL RDW (11.5-14.5) % Plt Count (150-400) 10^3/uL MPV (7.4-10.4) fL Immature Gran % (Auto) (0.0-5.0) % Neut % (Auto) (50.0-70.0) % Lymph % (Auto) (20.0-40.0) % Bryan % (Auto) (2.0-8.0) % Eos % (Auto) (1.0-3.0) % Baso % (Auto) (0.0-1.0) % Neut # (Auto) (2.50-7.00) 10^3/uL Lymph # (Auto) (1.00-4.00) 10^3/uL Bryan # (Auto) (0.10-0.80) 10^3/uL Eos # (Auto) (0.10-0.30) 10^3/uL Baso # (Auto) (0.00-0.10) 10^3/uL Immature Gran # (Auto) (0.00-0.50) 10^3/uL Sodium (136-145) mmol/L Potassium (3.5-5.1) mmol/L Chloride (98-107) mmol/L Carbon Dioxide (21.0-32.0) mmol/L Anion Gap (5-15) mmol/L BUN (7-18) mg/dL Creatinine (0.51-1.17) mg/dL Est Cr Clr Drug Dosing mL/min Estimated GFR (MDRD) mL/min Glucose (70-140) mg/dL POC Glucose 99 126 H (74-106) mg/dl Calcium (8.7-10.3) mg/dL Total Bilirubin (0.2-1.0) mg/dL AST (15-37) U/L ALT (14-63) U/L Alkaline Phosphatase (46-116) U/L Total Protein (6.4-8.2) g/dL Albumin (3.40-5.00) g/dL Prakash Results Last 24 Hours: Microbiology 09/12/20 11:10 Occult Blood - Final Stool / Feces Med Orders - Current: Current Medications Albuterol (Albuterol 8 Gm Inhaler -Ptom) 0 gm INH Q4HR PRN PRN Reason: short of breath Alprazolam (Alprazolam 0.25 Mg Tab) 0.25 mg PO TID PRN PRN Reason: Anxiety Amoxicillin/Clavulanate Potassium (Amoxicillin/Clavulanate K 875-125 Mg Tab) 1 tab PO BIDMEALS [facility] Last Admin: 09/13/20 08:10 Dose: 1 tab Documented by: Aspirin (Aspirin 81 Mg Tab.Ec) 162 mg PO DAILY [facility] Last Admin: 09/13/20 08:11 Dose: 162 mg Documented by: Fish Oil (Fish Oil/[place]-3 Fatty Acids 1 Gm Cap) 1 gm PO DAILY [facility] Last Admin: 09/13/20 08:11 Dose: 1 gm Documented by: Fluticasone Propionate (Fluticasone Propionate Nasal [place] 16 Gm Bottle) 0 gm NASBOTH BID [facility] Last Admin: 09/13/20 08:11 Dose: 1 spray Documented by: Sodium Chloride (Normal Saline) 50 mls @ 200 mls/hr IV ASDIRECTED [facility] Sodium Chloride (Normal Saline) 1,000 mls @ 125 mls/hr IV ASDIRECTED [facility] Last Admin: 09/13/20 11:49 Dose: 125 mls/hr Documented by: Lisinopril (Lisinopril 20 Mg Tab - Ptom) 20 mg PO BID [facility] Last Admin: 09/13/20 08:18 Dose: 20 mg Documented by: Metformin HCl (Metformin 500 Mg Tab - Ptom) 500 mg PO BIDMEALS [facility] Pantoprazole [ Protonix] 40 Mg Tablet - Ptom 40 mg PO BID [facility] Last Admin: 09/13/20 08:16 Dose: 40 mg Documented by: Prednisone 20 Mg (Tablet - Ptom) 40 mg PO DAILY [facility] Stop: 09/14/20 09:01 Last Admin: 09/13/20 08:19 Dose: 40 mg Documented by: Prednisone 20 Mg (Tablet - Ptom) 20 mg PO DAILY [facility] Stop: 09/17/20 10:00 Prednisone 20 Mg (Tablet - Ptom) 10 mg PO DAILY [facility] Stop: 09/20/20 10:00 Simvastatin [Zocor] (40 Mg Tablet - Ptom) 40 mg PO BEDTIME [facility] Last Admin: 09/12/20 21:31 Dose: 40 mg Documented by: Sodium Chloride (Sodium Chloride 0.9% 10 Ml Syringe) 10 ml FLUSH Q8HR PRN PRN Reason: keep vein open Tramadol HCl (Tramadol 50 Mg Tab - Ptom) 50 mg PO Q4H PRN PRN Reason: Pain Discontinued Medications Albuterol/Ipratropium (Albuterol/Ipratropium 3.0-0.5 Mg/3 Ml Neb Soln) 3 ml NEB Q4H [facility] Last Admin: 09/13/20 10:24 Dose: Not Given Documented by: Budesonide (Budesonide 0.5 Mg/2 Ml Neb Susp) 0.5 mg NEB BIDRT [facility] Last Admin: 09/13/20 10:24 Dose: Not Given Documented by: Diatrizoate Meglum/Diatrizoate Sod (Diatrizoate Meglumine/Diatrizoate Sodium 37% 30 Ml Bottle) 30 ml PO ONETIME ONE Stop: 09/12/20 14:38 Last Admin: 09/12/20 19:11 Dose: Not Given Documented by: Iopamidol (Iopamidol 755 Mg/Ml 100 Ml Bottle) 100 ml IV ONETIME ONE Stop: 09/12/20 14:38 Last Admin: 09/12/20 19:10 Dose: Not Given Documented by: Ketamine HCl (Ketamine 200 Mg/20 Ml Mdv) Confirm Administered Dose 200 mg .ROUTE .STK-MED ONE Stop: 09/13/20 14:08 Midazolam HCl (Midazolam 1 Mg/Ml 2 Ml Sdv) Confirm Administered Dose 2 mg .ROUTE .STK-MED ONE Stop: 09/13/20 13:41 Propofol (Propofol 200 Mg/20 Ml Sdv) Confirm Administered Dose 200 mg .ROUTE .STK-MED ONE Stop: 09/13/20 13:41 Sodium Biphosphate/Sodium Phosphate (Sodium Phosphate,Monobasic/Sodium Phosphate,Dibasic Enema 133 Ml Bottle) 133 ml RECTAL ONETIME ONE Stop: 09/13/20 11:42 Last Admin: 09/13/20 11:50 Dose: 133 ml Documented by: Sodium Biphosphate/Sodium Phosphate (Sodium Phosphate,Monobasic/Sodium Phosphate,Dibasic Enema 133 Ml Bottle) 133 ml RECTAL ONETIME ONE Stop: 09/13/20 12:13 Last Admin: 09/13/20 12:34 Dose: 1 bottle Documented by: - Exam General: Alert, Oriented, Cooperative, No Acute Distress Lungs: Clear to Auscultation, Normal Respiratory Effort Cardiovascular: Regular Rate, Regular Rhythm, No Murmurs GI/Abdominal Exam: Normal Bowel Sounds, Soft, Non-Tender, No Organomegaly, No Distention Extremities: No Pedal Edema - Patient Data Lab Results Last 24 hrs: Laboratory Results - last 24 hr 09/12/20 09/13/20 09/13/20 Range/Units 17:40 07:05 07:05 WBC 9.90 (5.00-10.00) 10^3/uL RBC 4.45 L (4.50-6.00) 10^6/uL Hgb 13.6 D (13.0-17.0) g/dL Hct 39.8 L (40.0-52.0) % MCV 89.4 (82.0-92.0) fL MCH 30.6 (27.0-31.0) pg MCHC 34.2 (32.0-36.0) g/dL RDW 12.8 (11.5-14.5) % Plt Count 269 (150-400) 10^3/uL MPV 10.4 (7.4-10.4) fL Immature Gran % (Auto) 0.3 (0.0-5.0) % Neut % (Auto) 56.7 (50.0-70.0) % Lymph % (Auto) 33.8 (20.0-40.0) % Bryan % (Auto) 7.7 (2.0-8.0) % Eos % (Auto) 1.0 (1.0-3.0) % Baso % (Auto) 0.5 (0.0-1.0) % Neut # (Auto) 5.61 (2.50-7.00) 10^3/uL Lymph # (Auto) 3.35 (1.00-4.00) 10^3/uL Bryan # (Auto) 0.76 (0.10-0.80) 10^3/uL Eos # (Auto) 0.10 (0.10-0.30) 10^3/uL Baso # (Auto) 0.05 (0.00-0.10) 10^3/uL Immature Gran # (Auto) 0.03 (0.00-0.50) 10^3/uL Sodium 140 (136-145) mmol/L Potassium 3.7 (3.5-5.1) mmol/L Chloride 105 (98-107) mmol/L Carbon Dioxide 25.2 (21.0-32.0) mmol/L Anion Gap 13.5 (5-15) mmol/L BUN 13 (7-18) mg/dL Creatinine 0.73 (0.51-1.17) mg/dL Est Cr Clr Drug Dosing 103.35 mL/min Estimated GFR (MDRD) > 60 mL/min Glucose 109 (70-140) mg/dL POC Glucose 92 (74-106) mg/dl Calcium 8.6 L (8.7-10.3) mg/dL Total Bilirubin 0.7 (0.2-1.0) mg/dL AST 19 (15-37) U/L ALT 37 (14-63) U/L Alkaline Phosphatase 55 (46-116) U/L Total Protein 6.1 L (6.4-8.2) g/dL Albumin 3.28 L (3.40-5.00) g/dL 09/13/20 09/13/20 Range/Units 07:53 12:32 WBC (5.00-10.00) 10^3/uL RBC (4.50-6.00) 10^6/uL Hgb (13.0-17.0) g/dL Hct (40.0-52.0) % MCV (82.0-92.0) fL MCH (27.0-31.0) pg MCHC (32.0-36.0) g/dL RDW (11.5-14.5) % Plt Count (150-400) 10^3/uL MPV (7.4-10.4) fL Immature Gran % (Auto) (0.0-5.0) % Neut % (Auto) (50.0-70.0) % Lymph % (Auto) (20.0-40.0) % Bryan % (Auto) (2.0-8.0) % Eos % (Auto) (1.0-3.0) % Baso % (Auto) (0.0-1.0) % Neut # (Auto) (2.50-7.00) 10^3/uL Lymph # (Auto) (1.00-4.00) 10^3/uL Bryan # (Auto) (0.10-0.80) 10^3/uL Eos # (Auto) (0.10-0.30) 10^3/uL Baso # (Auto) (0.00-0.10) 10^3/uL Immature Gran # (Auto) (0.00-0.50) 10^3/uL Sodium (136-145) mmol/L Potassium (3.5-5.1) mmol/L Chloride (98-107) mmol/L Carbon Dioxide (21.0-32.0) mmol/L Anion Gap (5-15) mmol/L BUN (7-18) mg/dL Creatinine (0.51-1.17) mg/dL Est Cr Clr Drug Dosing mL/min Estimated GFR (MDRD) mL/min Glucose (70-140) mg/dL POC Glucose 99 126 H (74-106) mg/dl Calcium (8.7-10.3) mg/dL Total Bilirubin (0.2-1.0) mg/dL AST (15-37) U/L ALT (14-63) U/L Alkaline Phosphatase (46-116) U/L Total Protein (6.4-8.2) g/dL Albumin (3.40-5.00) g/dL Result Diagrams: 09/13/20 07:05 09/13/20 07:05 Prakash Results Last 24 hrs: Microbiology 09/12/20 11:10 Occult Blood - Final Stool / Feces Sepsis Event Note - Evaluation Sepsis Screening Result: No Definite Risk - Focused Exam Vital Signs: Vital Signs Temp Pulse Resp BP BP BP Pulse Ox 09/13/20 15:30 56 L 16 150/76 H 94 L 09/13/20 15:00 97.5 F 61 16 169/85 H 95 09/13/20 14:30 65 96 H 149/81 H 09/13/20 14:20 98.4 F 80 18 169/79 H 97 09/13/20 11:00 97.4 F 58 L 17 131/66 94 L 09/13/20 08:18 145/75 H 09/13/20 06:12 56 L 09/13/20 06:05 97.9 F 55 L 16 141/70 H 96 Pulse Ox 09/13/20 15:30 09/13/20 15:00 09/13/20 14:30 09/13/20 14:20 09/13/20 11:00 09/13/20 08:18 09/13/20 06:12 96 09/13/20 06:05 - Problem List Review Problem List Initiated/Reviewed/Updated: Yes - My Orders Last 24 Hours: My Active Orders 09/13/20 08:59 Consult to Case Management/Supervisor [employer] [CONS] Routine 09/13/20 11:38 Consult to Physician [CONS] Urgent 09/13/20 11:40 Notify Provider Consults [RC] ASDIRECTED 09/13/20 11:45 Sodium Chloride 0.9% [Normal Saline] 1,000 ml IV ASDIRECTED 09/13/20 13:00 Verify Patient Consent Obtain [RC] ASDIRECTED 09/13/20 Dinner [employer] Diet [DIET] 09/14/20 05:11 BMP [BASIC METABOLIC PANEL,BMP] [CHEM] AM CBC WITH AUTO DIFF [HEME] AM INR,PT,PROTHROMBIN TIME [COAG] AM PTT,PARTIAL THROMBOPLSTIN TIME [COAG] AM 09/15/20 05:11 BMP [BASIC METABOLIC PANEL,BMP] [CHEM] AM CBC WITH AUTO DIFF [HEME] AM - Assessment Assessment:: Admission Diagnoses: Flip blood in the stool - Repeat colonoscopy today (09/13) with Dr. Rup, no evidence of active ble eding. - PTT and INR in AM with labs - Hold ASA - Monitor stools - Mechanical soft diet, diabetic - Repeat CBC in AM SOB - Improved - Continue Ventolin inhaler Secondary Diagnoses: HTN - Continue Lisinopril 20 mg PO BID Hyperlipidemia - Continue simvastatin 40 mg PO qhs Metabolic Syndrome X - Metformin held due to CT with contrast, resume after 48 hours Acid Reflux - Continue pantoprazole 40 mg PO BID Anticipate discharge to home in AM if no evidence of bleeding and labs are all stable. CODE STATUS: Full Code
[2020-09-13] MEDS: SIMVASTATIN 40 MG PO SCH (20:34)
--- NOTE | 2020-09-14 07:16 | CONS ---
DATE OF CONSULTATION: CONSULTING PHYSICIAN: Tawnya Donaldson MD REQUESTING PHYSICIAN: HISTORY OF PRESENT ILLNESS: The patient is a 69-year-old gentleman who has been admitted to the services of Dr. Tawnya Donaldson at the [facility]. Dr. Donaldson requested my consultation regarding his GI bleeding. Approximately 1 week ago, the patient had underwent a colonoscopy by Dr. Manas Khalil and 3 polyps were removed. Subsequently, as of yesterday, the patient developed lower GI bleeding and his hemoglobin dropped from 15 to 13. He was given IV fluids, stabilized, and placed in the hospital. A consultation was requested for possible endoscopy and looking for the source of the bleeding. PAST MEDICAL HISTORY: Positive for COPD, anxiety, hypercholesterolemia, and gastritis. He is being followed by Christina Cohen RN, PA-C at the [facility]. MEDICATIONS: Include Ventolin inhalations, Xanax 0.25 t.i.d. p.r.n., amoxicillin, aspirin 162 mg daily, fluticasone and Flonase nasally to both b.i.d. schedule, lisinopril 20 mg b.i.d., metformin 500 mg b.i.d., Protonix 40 mg b.i.d., prednisone in decreasing doses, tramadol 50 mg on a p.r.n. basis. ALLERGIES: Possibly to tetanus vaccines and toxoid. CODE STATUS: The patient is a full code. REVIEW OF SYSTEMS: HEAD AND NECK: No complaints. EYES, EARS, NOSE, THROAT: No complaints. NECK: No complaints. CHEST: No complaints of coughing or wheezing at this time. CARDIOVASCULAR: No complaints of chest pain. ABDOMEN: Slight tenderness in the left lower quadrant. The patient complains of flip rectal bleeding. NEUROLOGIC: No complaints. PHYSICAL EXAMINATION: GENERAL: Reveals very pleasant patient, in no immediate distress. VITAL SIGNS: His pulse is 61, temperature is 97.5, blood pressure is 160/80. HEAD: Negative. EYES: Normal. EARS, NOSE, AND THROAT: Normal. NECK: Supple. Full range of motion. No midline swellings. Trachea midline. Carotid pulses full and equal. HEART AND LUNGS: Stable. ABDOMEN: Soft. There is some tenderness in the left lower quadrant. No rebound, no rigidity. No masses palpable. Femoral pulses full. EXTREMITIES: Normal. NEUROLOGIC: Intact. RECTAL: Reveals some old blood present in the rectum. No masses. IMPRESSION: 1. Flip rectal bleeding with a drop of hemoglobin from 13 to 15. 2. Recent colonoscopy 1 week ago with removal of 3 polyps. Question bleeding from the polyps or other etiologies. The patient will be set up to have a lower gastrointestinal endoscopy looking for cause of the bleeding. If bleeders are identified, they could be cauterized or clips could be placed. In the event that there is no source from the lower gastrointestinal bleeding, then an upper gastrointestinal endoscopy may be necessary. 3.Follow Hg and Hct, PT Ptt if necessary for progress. Thank you for this interesting consultation. /[id number]/MODL MTDD
[2020-09-14 07:57] LABS: ANION GAP 16.7 mmol/L (5-15); CHLORIDE,CL 105 mmol/L (98-107); SODIUM,NA 141 mmol/L (136-145)
[2020-09-14 08:06] LABS: PTT,PARTIAL THROMBOPLSTIN TIME 24.4 SEC (22.8-31.4)
[2020-09-14] MEDS: Fish Oil/Omega-3 Fatty Acids 1 Gm Cap PO SCH (08:30)
[2020-09-14] MEDS: Fluticasone Propionate Nasal Spray 16 GM Bottle NASBOTH SCH ×2 (08:30→20:34)
[2020-09-14] MEDS: Amoxicillin/Clavulanate K 875-125 MG Tab PO SCH ×2 (08:30→18:11)
[2020-09-14] MEDS: PANTOPRAZOLE 40 MG PO SCH (08:31)
[2020-09-14] MEDS: PREDNISONE 20 MG PO SCH (08:32)
[2020-09-14] MEDS: LISINOPRIL 20 MG PO SCH (08:33)
--- NOTE | 2020-09-14 13:00 | PN ---
PATIENT NAME: PAUL MATTSON HISTORY OF PRESENT ILLNESS: This is a 69-year-old male who was admitted to the hospital on 09/12/2020 with blood in his stool. He had had a colonoscopy on 09/05/2020 and had three polyps. Two were biopsied, one at the rectum 1 cm from the anal verge and one from the hepatic flexure. There was a smaller polyp in the ascending colon, which was destroyed and not biopsied. The patient was seen by Dr. Tawnya Jacobson yesterday. Dr. Paula August consulted and performed a colonoscopy as well as an upper GI endoscopy. Everything was basically normal. On the upper GI endoscopy, there was old blood present in the colon, but no active bleeding. There were a few diverticuli present, but no active bleeding from the diverticuli. The patient is being changed to inpatient status today. He does have multiple medical problems including anxiety, allergic rhinitis, hypertension, diabetes mellitus, and hypercholesterolemia. He does have some emphysema as well. He is using an inhaler for the same. He does have an upcoming appointment with Dr. Carranza in [place] for allergy/asthma. LAB WORK: From today, white count is just slightly elevated at 10.63. The rest of the CBC appears to be normal. PT, INR, and APTT are all normal. Basic metabolic panel is normal as well. PHYSICAL EXAMINATION: VITAL SIGNS: Temp is 97.2, pulse of 58, respirations 20, blood pressure 146/71, O2 saturation 99% on room air. SKIN: Warm and dry to touch. CARDIAC: Reveals S1, S2 to be normal. Rate and rhythm are regular. No murmur, click, or gallop is auscultated. LUNGS: Clear. ABDOMEN: Soft, somewhat distended, probably due to the colonoscopy. Bowel sounds are present in all four quadrants. There is no pedal edema. IMPRESSION: Blood in stool from a recent colonoscopy. Repeat upper and lower gastrointestinal endoscopies were performed yesterday by Dr. Paula August with some old blood found in the colon. There was no active bleeding or abnormalities found in the upper gastrointestinal tract. The patient has not had a stool today. He does feel somewhat distended and bloated. Dr. Mitchell recommended, he have a clear liquid diet today and then advance to a soft diet tomorrow. He will be kept in the hospital one more day. I did change him to inpatient status. The remainder of his chronic medical conditions are stable. /[id number]/MODL MTDD
[2020-09-14] MEDS ORDERED: Acetaminophen 325 MG Tab PO PRN (14:43)
[2020-09-14] MEDS ORDERED: Albuterol 8 GM Inhaler INH PRN (14:58)
[2020-09-14] MEDS ORDERED: traMADol 50 MG Tab PO PRN (15:00)
[2020-09-14] MEDS: Lisinopril 20 MG Tab PO SCH (20:33)
[2020-09-14] MEDS: Pantoprazole 40 MG Tab.CR PO SCH (20:33)
[2020-09-14] MEDS ORDERED: Simvastatin 20 MG Tab PO SCH (21:00)
[2020-09-15] MEDS: Amoxicillin/Clavulanate K 875-125 MG Tab PO SCH (08:01)
[2020-09-15] MEDS: Pantoprazole 40 MG Tab.CR PO SCH (08:01)
[2020-09-15] MEDS: Fish Oil/Omega-3 Fatty Acids 1 Gm Cap PO SCH (08:02)
[2020-09-15] MEDS: Lisinopril 20 MG Tab PO SCH (08:02)
[2020-09-15] MEDS: Fluticasone Propionate Nasal Spray 16 GM Bottle NASBOTH SCH (08:07)
[2020-09-15 08:14] LABS: ANION GAP 15.2 mmol/L (5-15); CHLORIDE,CL 105 mmol/L (98-107); SODIUM,NA 140 mmol/L (136-145)
[2020-09-15] MEDS ORDERED: metFORMIN 500 MG Tab PO SCH (09:00)
[2020-09-15] MEDS ORDERED: PREDNISONE 20 MG PO SCH (09:00)
[2020-09-15] MEDS ORDERED: Loratadine 10 MG Tab PO SCH (09:00)
[2020-09-15] MEDS ORDERED: predniSONE 20 MG Tab PO SCH (09:00)
[2020-09-15] MEDS ORDERED: Mometasone Furoate Powder 220 MCG/Puff 14 Dose Inhaler INH SCH (10:00)
[2020-09-15 11:48] VITALS: BP 152/75; PULSE 58
--- NOTE | 2020-09-16 02:57 | DISCH ---
This is a 69-year-old male who has been hospitalized first as an observation patient and then converted to inpatient with GI bleeding. The patient had a colonoscopy with polypectomy on September 05, 2020 which was 1 week prior to his admission to the hospital on September 12, 2020. There were 3 polyps found. There was a 4-mm polyp in the rectum 1 cm from the anal verge, which was biopsied. There was a 7-mm polyp in the hepatic flexure, which was also biopsied. There was a 4-mm polyp in the ascending colon, which was destroyed. The patient was also found to have a moderate degree of diverticulosis scattered throughout the colon, but this did not appear to be acutely inflamed and there was no indication of any stenosis in the colon. There was no remark made whether the patient has internal or external hemorrhoids. The patient has had various symptoms for the past 3 months. He has been previously hospitalized as well. He has had CAT scans of his abdomen and pelvis, which were basically normal. He did have a CT of his chest, which showed some centrilobular emphysema. The patient had his gallbladder removed, upper GI endoscopy, and then most recently colonoscopy. The week prior to his hospitalization he was treated with IM penicillin as well as Augmentin for sore throat. He is also placed on a tapering dose of prednisone. He has been taking tramadol for a headache. The patient has had some shortness of breath and has been provided with an albuterol inhaler that he is using appropriately. During the patient's hospitalization, he did have bloody stools. Over the course of the past 2 days, he has not. He did have a small amount of blood on the toilet paper this morning, but no flip blood in his stool. During his hospitalization, his hemoglobin had dropped [address] Tawnya Jacobson saw him in consultation and actually went on to ask Dr. Paula August to also consult on the patient. Dr. Mitchell performed a colonoscopy which showed a lot of old blood present throughout the colon, even at the cecum. Multiple diverticula were seen. No active bleeding was noted. He did go on then to do an upper GI endoscopy which was basically found to be normal. The patient's labs from today show mild elevation of the white blood cell count at 11.74. This is most likely due to the oral steroids he is taking. The remainder of the CBC is unremarkable. His hemoglobin is stable at 13.9, it was 13.6 yesterday. Basic metabolic panel was normal with the exception of an elevated anion gap of 15.2, which I do not feel is clinically significant. The patient does have an upcoming appointment with Dr. Cagle in [place] for Allergy/Asthma. PHYSICAL EXAMINATION: VITAL SIGNS: Temp is 97.8, pulse is 54, respirations 20, blood pressure 154/66, O2 sat is 94% on room air. SKIN: Warm and dry to touch. CARDIAC: S1, S2 to be normal. Rate and rhythm are regular. No murmur, click, or gallop is auscultated. LUNGS: Clear without rales, wheezes, or rhonchi. ABDOMEN: Soft. Mild discomfort in the suprapubic area. Bowel sounds are present in all 4 quadrants. EXTREMITIES: There is no pedal edema. IMPRESSION: Gastrointestinal bleeding following a colonoscopy. No active bleeding found on repeat colonoscopy. There was old blood found. This is probably just going to have to pass through. Still I am awaiting pathology report from the colonoscopy that he had performed on September 05, 2020. The patient does have anxiety and is using alprazolam. He will continue Augmentin and prednisone for the sore throat that he was seen a week before admission. He will resume daily aspirin regimen. He has allergic rhinitis and uses Flonase. He has hypertension and is taking lisinopril. He does have diabetes and is taking metformin. He has hypercholesterolemia and is taking simvastatin. I did send him home on Asmanex, hopefully this will help him require the use of his rescue inhaler less often. The patient is comfortable with the plan of care. He is going to follow up with me next week. If he has any questions or concerns when he gets home, he was urged to contact me. /[id number]/MODL
[2020-09-18] MEDS ORDERED: PREDNISONE 20 MG PO SCH (09:00)
[2020-09-18] MEDS ORDERED: predniSONE 10 MG Tab PO SCH (09:00)
== END 2020-09-15 11:04 | disposition home or self-care (01) | DRG 920 ==
LOC: KA.OC 10:52 → KA.MS 13:13 → UNDOADMOB 13:13 → KA.MS 13:17 → OBSVTOIN 09-14 09:25
DX: K91.840 Postprocedural hemorrhage of a digestive system organ or structure following a digestive system procedure (principal); K92.2 Gastrointestinal hemorrhage, unspecified; Y83.8 Other surgical procedures as the cause of abnormal reaction of the patient, or of later complication, without mention of misadventure at the time of the procedure; K92.1 Melena; Z88.7 Allergy status to serum and vaccine; Z79.82 Long term (current) use of aspirin; Z79.52 Long term (current) use of systemic steroids; Z79.84 Long term (current) use of oral hypoglycemic drugs; Z79.899 Other long term (current) drug therapy; I10 Essential (primary) hypertension; E11.9 Type 2 diabetes mellitus without complications; K57.30 Diverticulosis of large intestine without perforation or abscess without bleeding; E78.00 Pure hypercholesterolemia, unspecified; F41.9 Anxiety disorder, unspecified; R06.02 Shortness of breath; R10.9 Unspecified abdominal pain; E78.5 Hyperlipidemia, unspecified; K21.9 Gastro-esophageal reflux disease without esophagitis; E88.81 Metabolic syndrome and other insulin resistance; J44.9 Chronic obstructive pulmonary disease, unspecified; Z86.010 Personal history of colon polyps; Z98.890 Other specified postprocedural states; Z20.822 Contact with and (suspected) exposure to COVID-19
CPT/HCPCS: 00813; 36415; 74177; 80048; 80053; 82270; 82607; 82962; 85025; 85610; 85730; 94640; A9270-GY; G0378; G0379; J2250; J2704; J3490; J7030; J7512; J7620-GY; U0002

== ENCOUNTER 2021-01-01 09:48 | Observation (INO) | payer MEDICARE, OTHER ==
[2021-01-01] MEDS ORDERED: Sodium Chloride 0.9% 10 ML Syringe FLUSH PRN (10:04)
[2021-01-01 10:43] LABS: ANION GAP 15.4 mmol/L (5-15); CHLORIDE,CL 101 mmol/L (98-107); SODIUM,NA 134 mmol/L (136-145)
--- NOTE | 2021-01-01 10:58 | EDM.PDOC ---
ED HPI GENERAL MEDICAL PROBLEM - General Chief Complaint: Cardiovascular Problem Stated Complaint: NOT FEELING WELL Time Seen by Provider: 01/01/21 10:22 Source of Information: Reports: Patient, Significant Other History Limitations: Reports: No Limitations - History of Present Illness INITIAL COMMENTS - FREE TEXT/NARRATIVE: Patient presents with general weakness and fluttering in his heart. This started mid-morning 3 days ago, a couple hours after taking his first dose of Amlodipine. It gradually improved through the day and night but the last two days have been the same thing, which brings him in today. He says yesterday afternoon his energy levels were quite normal and he did a fair amount of yard work, felt good through the night but 2 hours after taking amlodipine this morning, symptoms returned. He tells me he had been on Lisinopril for 6-7 years, was switched to Losartan a few weeks ago to see if it would help the ringing in his ears (it didn't), switched back to Lisinopril until 3 days ago was switched to Amlodipine. He has recently an vp patient and a couple other doctors and it was felt he needed to stop Lisinopril due to cough. However, today he tells me he really didn't have much cough until the last two days, which has been a little productive. - Related Data Allergies Allergy/AdvReac Type Severity Reaction Status Date / Time Tetanus Vaccines and Toxoid Allergy Muscle Verified 01/01/21 10:12 Aches Home Meds: Home Meds Aspirin [Halfprin] 162 mg PO DAILY 10/03/16 [History] Simvastatin [Zocor] 40 mg PO BEDTIME 10/03/16 [History] metFORMIN HCl [Metformin HCl] 500 mg PO BIDMEALS 10/03/16 [History] Albuterol [Ventolin HFA] 1 - 2 puff INH Q4HR PRN 07/06/20 [History] Betamethasone Dipropionate [Diprosone 0.05% Crm] 1 applic TOP ASDIRECTED PRN 07/06/20 [History] Clotrimazole 1 applic TOP ASDIRECTED PRN 07/06/20 [History] Fish Oil/[place]-3 Fatty Acids [Fish Oil 1,000 MG] 1 cap PO DAILY 07/06/20 [History] ALPRAZolam [Xanax] 0.25 - 0.5 mg PO TID PRN 09/04/20 [History] Pantoprazole Sodium [Protonix] 40 mg PO BID 09/04/20 [History] Fluticasone Propionate [Flonase] 1 spray DONTE BID 09/12/20 [History] Acetaminophen [Tylenol] 650 mg PO Q6H PRN tablet 09/15/20 [Rx] Loratadine [Claritin] 10 mg PO DAILY tablet 09/15/20 [Rx] Mometasone Furoate [Asmanex 220 MCG] 1 puff INH DAILY 01/01/21 [History] amLODIPine Besylate [Amlodipine Besylate] 10 mg PO DAILY 01/01/21 [History] hydroCHLOROthiazide [Hydrochlorothiazide] 25 mg PO DAILY 01/01/21 [History] Past Medical History HEENT History: Reports: Hard of Hearing, Impaired Vision, Other (See Below) Other HEENT History: sinus infections Cardiovascular History: Reports: High Cholesterol, Hypertension, SOB on Exertion Respiratory History: Reports: COPD, SOB Gastrointestinal History: Reports: Cholelithiasis, Chronic Constipation, Hemorrhoids, Other (See Below) Other Gastrointestinal History: currently having nausea and some difficulty with swallowing foods. Genitourinary History: Reports: BPH Musculoskeletal History: Reports: Back Pain, Chronic, Other (See Below) Neurological History: Reports: None Psychiatric History: Reports: None Endocrine/Metabolic History: Reports: Diabetes, Type II Oncologic (Cancer) History: Reports: None Dermatologic History: Reports: Eczema - Infectious Disease History Infectious Disease History: Reports: Chicken Pox, Influenza, Measles, Mumps - Past Surgical History Head Surgeries/Procedures: Reports: None HEENT Surgical History: Reports: Tonsillectomy Cardiovascular Surgical History: Reports: None Respiratory Surgical History: Reports: None GI Surgical History: Reports: Appendectomy, Cholecystectomy, Colonoscopy, Other (See Below) Other GI Surgeries/Procedures: Hemmorrhoidectomy done 09/22/16. Male Surgical History: Reports: Cystectomy Endocrine Surgical History: Reports: None Neurological Surgical History: Reports: Lumbar Spine Other Neurological Surgeries/Procedures: april 1995 Musculoskeletal Surgical History: Reports: Shoulder Surgery Other Musculoskeletal Surgeries/Procedures:: back surgery in April 1995 - Past Imaging History Past Imaging History: Reports: MRI, Xray Social & Family History - Family History Family Medical History: No Pertinent Family History - Tobacco Use Tobacco Use Status *Q: Former Tobacco User Used Tobacco, but Quit: Yes Month/Year Tobacco Last Used: 1994 - Caffeine Use Caffeine Use: Reports: Coffee, Soda, Tea Other Caffeine Use: rarely - Alcohol Use Days Per Week of Alcohol Use: 7 Number of Drinks Per Day: 2 Total Drinks Per Week: 14 - Recreational Drug Use Recreational Drug Use: No - Living Situation & Occupation Living situation: Reports: , with Spouse ED ROS GENERAL - Review of Systems Review Of Systems: See Below Constitutional: Reports: Malaise, Weakness, Fatigue. Denies: Fever, Chills HEENT: Denies: Ear Pain, Throat Pain, Vision Change Respiratory: Reports: Shortness of Breath (when weak and heart fluttering), Cough Cardiovascular: Denies: Chest Pain, Lightheadedness, Syncope GI/Abdominal: Reports: Abdominal Pain (chronic since his gallbladder surgery or before), Constipation (alternating), Diarrhea. Denies: Vomiting : Denies: Dysuria, Flank Pain Musculoskeletal: Denies: Neck Pain, Shoulder Pain, Arm Pain, Back Pain Skin: Denies: Cyanosis, Jaundice, Mottled, Pallor, Diaphoresis Neurological: Denies: Confusion, Dizziness, Headache, Seizure, Syncope, Trouble Speaking, Difficulty Walking Psychiatric: Denies: Agitation, Anxiety, Confusion ED EXAM, GENERAL - Physical Exam Exam: See Below Exam Limited By: No Limitations General Appearance: Alert, WD/WN, No Apparent Distress Eye Exam: Bilateral Eye: EOMI, Normal Inspection, PERRL Ears: Normal External Exam, Hearing Grossly Normal Nose: Normal Inspection, No Blood Throat/Mouth: Normal Inspection, Normal Lips, Normal Voice, No Airway Compromise Head: Atraumatic, Normocephalic Neck: Normal Inspection, Full Range of Motion Respiratory/Chest: No Respiratory Distress, Crackles (slight in right lung base) , Wheezing (slight in RLL). No: Rales, Rhonchi, Stridor Cardiovascular: Normal Peripheral Pulses, No Edema, No Murmur, Tachycardia, Irregularly Irregular GI/Abdominal: Normal Bowel Sounds, Soft, No Organomegaly, Tender (general across low abdomen, chronic per patient) Back Exam: Normal Inspection, Full Range of Motion. No: CVA Tenderness (L), CVA Tenderness (R) Extremities: Normal Inspection, Normal Range of Motion, No Pedal Edema Neurological: Alert, Oriented, Normal Cognition, No Motor/Sensory Deficits Psychiatric: Normal Affect, Normal Mood Skin Exam: Warm, Dry, Intact, Normal Color, No Rash #1 Interpretation EKG Date: 01/01/21 Rhythm: A-Fib Rate (Beats/Min): 105 P-Wave: Absent QRS: Normal ST-T: Other (inverted T-wave in inferior leads) QT: Normal Course - Vital Signs Last Recorded V/S: Last Vital Signs Temp 97.1 F 01/01/21 10:08 Pulse 116 H 01/01/21 10:08 Resp 20 01/01/21 10:08 BP 135/77 01/01/21 10:08 Pulse Ox 96 01/01/21 10:08 - Orders/Labs/Meds Orders: Active Orders 24 hr Category Date Time Status Patient Status [ADT] Routine ADT 01/01/21 12:52 Ordered EKG Documentation Completion [RC] ASDIRECTED Care 01/01/21 10:06 Active Peripheral IV Care [RC] . DIRECTED Care 01/01/21 10:05 Active Sodium Chloride 0.9% [Saline Flush] Med 01/01/21 10:04 Active 10 ml FLUSH Q8HR PRN Peripheral IV Insertion Adult [OM.PC] Routine Oth 01/01/21 10:04 Ordered EKG 12 Lead [EK] Stat Ther 01/01/21 09:54 Ordered Medication Orders Sodium Chloride (Sodium Chloride 0.9% 10 Ml Syringe) 10 ml FLUSH Q8HR PRN PRN Reason: keep vein open Last Admin: 01/01/21 10:00 Dose: 10 ml Documented by: NARINDER Labs: Laboratory Tests 01/01/21 01/01/21 01/01/21 Range/Units 10:00 10:00 10:00 WBC 10.52 H (5.00-10.00) 10^3/uL RBC 6.01 H (4.50-6.00) 10^6/uL Hgb 17.4 H D (13.0-17.0) g/dL Hct 52.1 H (40.0-52.0) % MCV 86.7 D (82.0-92.0) fL MCH 29.0 (27.0-31.0) pg MCHC 33.4 (32.0-36.0) g/dL RDW 13.0 (11.5-14.5) % Plt Count 315 (150-400) 10^3/uL MPV 11.1 H (7.4-10.4) fL Immature Gran % (Auto) 0.1 (0.0-5.0) % Neut % (Auto) 57.9 (50.0-70.0) % Lymph % (Auto) 27.0 (20.0-40.0) % Teller % (Auto) 9.8 H (2.0-8.0) % Eos % (Auto) 4.2 H (1.0-3.0) % Baso % (Auto) 1.0 (0.0-1.0) % Neut # (Auto) 6.09 (2.50-7.00) 10^3/uL Lymph # (Auto) 2.84 (1.00-4.00) 10^3/uL Teller # (Auto) 1.03 H (0.10-0.80) 10^3/uL Eos # (Auto) 0.44 H (0.10-0.30) 10^3/uL Baso # (Auto) 0.11 H (0.00-0.10) 10^3/uL Immature Gran # (Auto) 0.01 (0.00-0.50) 10^3/uL PT 10.4 (9.2-11.2) SEC INR 1.0 (0.9-1.1) APTT 26.6 (22.8-31.4) SEC Sodium 134 L (136-145) mmol/L Potassium 4.0 (3.5-5.1) mmol/L Chloride 101 (98-107) mmol/L Carbon Dioxide 21.6 (21.0-32.0) mmol/L Anion Gap 15.4 H (5-15) mmol/L BUN 16 (7-18) mg/dL Creatinine 0.80 (0.51-1.17) mg/dL Est Cr Clr Drug Dosing 92.96 mL/min Estimated GFR (MDRD) > 60 mL/min Glucose 136 (70-140) mg/dL Calcium 8.9 (8.7-10.3) mg/dL Total Bilirubin 0.5 (0.2-1.0) mg/dL AST 15 (15-37) U/L ALT 26 (14-63) U/L Alkaline Phosphatase 83 (46-116) U/L Troponin I High Sens 9.000 (0-76.000) pg/mL Total Protein 7.4 (6.4-8.2) g/dL Albumin 3.59 (3.40-5.00) g/dL SARS CoV-2 RNA Rapid EDY (NEGATIVE) 01/01/21 Range/Units 11:52 WBC (5.00-10.00) 10^3/uL RBC (4.50-6.00) 10^6/uL Hgb (13.0-17.0) g/dL Hct (40.0-52.0) % MCV (82.0-92.0) fL MCH (27.0-31.0) pg MCHC (32.0-36.0) g/dL RDW (11.5-14.5) % Plt Count (150-400) 10^3/uL MPV (7.4-10.4) fL Immature Gran % (Auto) (0.0-5.0) % Neut % (Auto) (50.0-70.0) % Lymph % (Auto) (20.0-40.0) % Teller % (Auto) (2.0-8.0) % Eos % (Auto) (1.0-3.0) % Baso % (Auto) (0.0-1.0) % Neut # (Auto) (2.50-7.00) 10^3/uL Lymph # (Auto) (1.00-4.00) 10^3/uL Teller # (Auto) (0.10-0.80) 10^3/uL Eos # (Auto) (0.10-0.30) 10^3/uL Baso # (Auto) (0.00-0.10) 10^3/uL Immature Gran # (Auto) (0.00-0.50) 10^3/uL PT (9.2-11.2) SEC INR (0.9-1.1) APTT (22.8-31.4) SEC Sodium (136-145) mmol/L Potassium (3.5-5.1) mmol/L Chloride (98-107) mmol/L Carbon Dioxide (21.0-32.0) mmol/L Anion Gap (5-15) mmol/L BUN (7-18) mg/dL Creatinine (0.51-1.17) mg/dL Est Cr Clr Drug Dosing mL/min Estimated GFR (MDRD) mL/min Glucose (70-140) mg/dL Calcium (8.7-10.3) mg/dL Total Bilirubin (0.2-1.0) mg/dL AST (15-37) U/L ALT (14-63) U/L Alkaline Phosphatase (46-116) U/L Troponin I High Sens (0-76.000) pg/mL Total Protein (6.4-8.2) g/dL Albumin (3.40-5.00) g/dL SARS CoV-2 RNA Rapid EDY Negative (NEGATIVE) Meds: Medications Generic Name Dose Route Start Last Admin Trade Name Freq PRN Reason Stop Dose Admin Sodium Chloride 10 ml 01/01/21 10:04 01/01/21 10:00 Sodium Chloride 0.9% 10 Ml Syringe FLUSH 10 ml Q8HR PRN Administration keep vein open Discontinued Medications Generic Name Dose Route Start Last Admin Trade Name Freq PRN Reason Stop Dose Admin Metoprolol Tartrate 25 mg 01/01/21 11:52 Metoprolol Tartrate 25 Mg Tab PO 01/01/21 11:53 ONETIME ONE - Re-Assessments/Exams Free Text/Narrative Re-Assessment/Exam: 01/01/21 11:29 No sign of [place] on EKG or troponin. CBC and CMP quite normal. CXR normal. Discussed case with DR. Lynn and will discuss with watch caser, waiting for call back. Discussed findings and recommendations with patient and his , recommending cardiology consult for likely cardioversion. They would like [facility] in [place]. 01/01/21 11:54 Dr. Vaughan, watch caser called back and we discussed case. He advises metoprolol 25 mg bid and Eliquis followed by consult with him in clinic when fully coagulated, for consideration of cardioversion. Discussed findings and t reatment plan with patient and his . Dr. Lynn will start and manage this in observation. Metoprolol 25 mg dose given in ER. Patient stable. Departure - Departure Time of Disposition: 11:58 Disposition: Refer to Observation Reason for Transfer *Q: Other Condition: Good Clinical Impression: Atrial fibrillation with RVR Referrals: Tawnya Dunn MD [Primary Care Provider] - Forms: ED Department Discharge Sepsis Event Note (ED) - Evaluation Sepsis Screening Result: No Definite Risk - Focused Exam Vital Signs: Vital Signs Temp Pulse Resp BP Pulse Ox 01/01/21 10:08 97.1 F 116 H 20 135/77 96 - My Orders Last 24 Hours: My Active Orders 01/01/21 09:54 EKG 12 Lead [EK] Stat 01/01/21 10:04 Sodium Chloride 0.9% [Saline Flush] 10 ml FLUSH Q8HR PRN Peripheral IV Insertion Adult [OM.PC] Routine 01/01/21 10:05 Peripheral IV Care [RC] . DIRECTED 01/01/21 10:06 EKG Documentation Completion [RC] ASDIRECTED 01/01/21 12:52 Patient Status [ADT] Routine - Assessment/Plan Last 24 Hours: My Active Orders 01/01/21 09:54 EKG 12 Lead [EK] Stat 01/01/21 10:04 Sodium Chloride 0.9% [Saline Flush] 10 ml FLUSH Q8HR PRN Peripheral IV Insertion Adult [OM.PC] Routine 01/01/21 10:05 Peripheral IV Care [RC] . DIRECTED 01/01/21 10:06 EKG Documentation Completion [RC] ASDIRECTED 01/01/21 12:52 Patient Status [ADT] Routine
[2021-01-01 11:02] LABS: PTT,PARTIAL THROMBOPLSTIN TIME 26.6 SEC (22.8-31.4)
--- NOTE | 2021-01-01 11:08 | CR ---
[id number] RAD/RAD Chest PA And Lateral EXAM: RAD Chest PA And Lateral INDICATION: COUGH, RIGHT LOWER LOBE CRACKLES, MILD. COMPARISON: None. DISCUSSION: Cardiomediastinal silhouette is normal in size and contour. No infiltrate, effusion, pneumothorax, or edema. Pulmonary hyperinflation. IMPRESSION: No acute cardiopulmonary abnormality. Nile Moralez DO 01/01/21 1107 Thank you for allowing us to participate in the care of your patient.
[2021-01-01] MEDS ORDERED: Metoprolol Tartrate 25 MG Tab PO ONE (11:52)
[2021-01-01] MEDS ORDERED: Albuterol 8 GM Inhaler INH PRN (14:05)
[2021-01-01] MEDS ORDERED: ALPRAZOLAM 0.5 MG PO PRN (14:05)
[2021-01-01] MEDS ORDERED: Acetaminophen 325 MG Tab PO PRN (14:05)
[2021-01-01] MEDS ORDERED: Betamethasone Dipropionate 0.05% Crm 15 GM Tube TOP PRN (14:05)
[2021-01-01] MEDS ORDERED: Clotrimazole 1% Crm 30 GM Tube TOP PRN (15:30)
[2021-01-01] MEDS: metFORMIN 500 MG Tab - PTOM PO SCH (18:16)
[2021-01-01] MEDS ORDERED: Simvastatin 20 MG Tab ONE (20:22)
[2021-01-01] MEDS: PANTOPRAZOLE 40 MG PO SCH (20:33)
[2021-01-01] MEDS: Metoprolol Tartrate 25 MG Tab PO SCH (20:34)
[2021-01-01] MEDS: Apixaban 5 MG Tab PO SCH (20:34)
[2021-01-01] MEDS: Fluticasone Propionate Nasal Spray 16 GM Bottle NAS SCH (20:35)
[2021-01-01] MEDS ORDERED: Metoprolol Tartrate 25 MG Tab PO SCH (21:00)
[2021-01-01] MEDS ORDERED: FAMOTIDINE 20 MG PO SCH (21:00)
[2021-01-01] MEDS ORDERED: SIMVASTATIN 40 MG PO SCH (21:00)
[2021-01-02] MEDS: Apixaban 5 MG Tab PO SCH (08:10)
[2021-01-02] MEDS: PANTOPRAZOLE 40 MG PO SCH (08:10)
[2021-01-02] MEDS: Metoprolol Tartrate 25 MG Tab PO SCH (08:10)
[2021-01-02] MEDS: metFORMIN 500 MG Tab - PTOM PO SCH (08:10)
[2021-01-02 08:11] VITALS: BP 125/74; PULSE 76
[2021-01-02 08:13] LABS: CHLORIDE,CL 100 mmol/L (98-107); SODIUM,NA 135 mmol/L (136-145)
[2021-01-02] MEDS ORDERED: Fish Oil/Omega-3 Fatty Acids 1 Gm Cap PO SCH (09:00)
[2021-01-02] MEDS ORDERED: Mometasone Furoate Powder 220 MCG/Puff 14 Dose Inhaler INH SCH (09:00)
[2021-01-02] MEDS ORDERED: Aspirin 81 MG Tab.EC PO SCH (09:00)
[2021-01-02] MEDS ORDERED: Loratadine 10 MG Tab PO SCH (09:00)
[2021-01-02] MEDS ORDERED: Lisinopril 20 MG Tab PO SCH (09:00)
[2021-01-02] MEDS: Fluticasone Propionate Nasal Spray 16 GM Bottle NAS SCH (09:11)
--- NOTE | 2021-01-02 09:20 | PCM.DCSUM1 ---
Discharge Summary - Hospital Course Free Text/Narrative:: Admission Date: Discharge Date: 01/02/2021 Admission Diagnosis: New onset atrial fibrillation Discharge Diagnosis: New onset atrial fibrillation, rate controlled with initiation of metoprolol 50 mg PO BID - Metoprolol 50 mg PO BID (NEW) - Eliquis 5 mg PO BID (NEW) Secondary Diagnoses: Hypertension - Resume lisinopril 20 mg PO BID - Discontinue amlodipine and HCTZ Hyperlipidemia - Simvastatin 40 mg PO daily Impaired fasting glucose without diagnosis of diabetes - Metformin 500 mg PO BID Shortness of Breath - Albuterol inhaler q 4 hours PRN - Mometasone 1 puff daily Allergies - Loratadine 10 mg PO daily - Fluticasone nasal spray BID Acid Reflux - Famotidine 20 mg PO qhs - Pantoprazole 40 mg PO BID New medications at discharge: Metoprolol 50 mg PO BID Eliquis 5 mg PO BID Code Status: Full Code Abiel is a pleasant 70 yo male who presented to the ER on 01/01 with palpitations and feeling weak and run down. On 12/29 he was switched from lisinopril 20 mg PO BID to amlodipine 10 mg PO daily and HCTZ 25 mg PO daily. This was done due to elevated BP as well as a cough his home service advisor felt was related to his lisinopril. Abiel states that the cough was only in the morning, not throughout the day. He states his cough was worse off of the lisinopril than it was when he was on it. He notes that starting on 12/29 after a few hours of taking the amlodipine he would have palpitations that would last for a few hours and then subside. He would feel somewhat weak and fatigued during the time of the palpitations. This happened again on 12/30, 12/31 and 01/01 and thus his presentation to the ER. In the ER he was noted to be in atrial fibrillation, which was new for him, with a rate just over 100. Cardiology was consulted and they recommended outpatient vs. inpatient initiation of metoprolol for rate control. He was given metoprolol 25 mg PO x 1 dose in the ER and admitted on telemetry for observation. His HR was noted to be in the 90's with the 25 mg of metoprolol and so he received 50 mg PO last evening with HR overnight in the 70's-80's. He was also initiated on Eliquis 5 mg PO BID for stroke prophylaxis. This morning he is feeling better. BP is well controlled, may even need to decrease his lisinopril. Amlodipine and HCTZ were discontinued due to side effects and him feeling better on the lisinopril. He has a follow-up appointment already scheduled with me for January 08 and so he will keep that appointment. Can consider cardiology referral for new onset a-fib at that time. His new prescriptions will be sent through to the pharmacy through his outpatient clinic chart. He requested the [facility] pharmacy in [place]. Modified Caesar Scale: No Signif.Disability Despite Sympt.Able to Carry Out Usual Act./Duties Modified Caesar Scale Score: 1 - Discharge Data Discharge Date: 01/02/21 Discharge Disposition: Home, Self-Care 01 Condition: Good - Referral to Home Health Primary Care Physician: Tawnya Dunn MD - Patient Instructions Diet: Usual Diet as Tolerated - Discharge Plan *PRESCRIPTION DRUG MONITORING PROGRAM REVIEWED*: Not Applicable *COPY OF PRESCRIPTION DRUG MONITORING REPORT IN PATIENT KIMBER: Not Applicable Home Medications: Home Meds Aspirin [Halfprin] 162 mg PO DAILY 10/03/16 [History] Simvastatin [Zocor] 40 mg PO BEDTIME 10/03/16 [History] metFORMIN HCl [Metformin HCl] 500 mg PO BIDMEALS 10/03/16 [History] Albuterol [Ventolin HFA] 1 - 2 puff INH Q4HR PRN 07/06/20 [History] Betamethasone Dipropionate [Diprosone 0.05% Crm] 1 applic TOP ASDIRECTED PRN 07/06/20 [History] Clotrimazole 1 applic TOP ASDIRECTED PRN 07/06/20 [History] Fish Oil/[place]-3 Fatty Acids [Fish Oil 1,000 MG] 1 cap PO DAILY 07/06/20 [History] ALPRAZolam [Xanax] 0.25 - 0.5 mg PO TID PRN 09/04/20 [History] Pantoprazole Sodium [Protonix] 40 mg PO BID 09/04/20 [History] Fluticasone Propionate [Flonase] 1 spray DONTE BID 09/12/20 [History] Acetaminophen [Tylenol] 650 mg PO Q6H PRN tablet 09/15/20 [Rx] Loratadine [Claritin] 10 mg PO DAILY tablet 09/15/20 [Rx] Mometasone Furoate [Asmanex 220 MCG] 1 puff INH DAILY 01/01/21 [History] Apixaban [Eliquis] 5 mg PO BID tablet 01/02/21 [Rx] Famotidine [Pepcid] 20 mg PO BEDTIME tablet 01/02/21 [Rx] Metoprolol Tartrate [Lopressor] 50 mg PO BID tablet 01/02/21 [Rx] lisinopriL [Prinivil] 40 mg PO DAILY tablet 01/02/21 [Rx] Forms: ED Department Discharge Referrals: Tawnya Dunn MD [Primary Care Provider] - - Discharge Summary/Plan Comment DC Time >30 min.: No - General Info Date of Service: 01/02/21 Admission Dx/Problem (Free Text: New onset Atrial Fibrillation - Patient Data Vitals - Most Recent: Last Vital Signs Temp 97.1 F 01/02/21 06:34 Pulse 76 01/02/21 08:10 Resp 20 01/02/21 06:34 BP 125/74 01/02/21 08:10 Pulse Ox 94 L 01/02/21 06:34 Weight - Most Recent: 259 lb 3.2 oz I&O - Last 24 hours: Intake & Output 01/01/21 01/02/21 01/02/21 22:59 06:59 14:59 Intake Total 250 200 Balance 250 200 Lab Results - Last 24 hrs: Laboratory Results - last 24 hr 01/01/21 01/01/21 01/01/21 Range/Units 10:00 10:00 10:00 WBC 10.52 H (5.00-10.00) 10^3/uL RBC 6.01 H (4.50-6.00) 10^6/uL Hgb 17.4 H D (13.0-17.0) g/dL Hct 52.1 H (40.0-52.0) % MCV 86.7 D (82.0-92.0) fL MCH 29.0 (27.0-31.0) pg MCHC 33.4 (32.0-36.0) g/dL RDW 13.0 (11.5-14.5) % Plt Count 315 (150-400) 10^3/uL MPV 11.1 H (7.4-10.4) fL Immature Gran % (Auto) 0.1 (0.0-5.0) % Neut % (Auto) 57.9 (50.0-70.0) % Lymph % (Auto) 27.0 (20.0-40.0) % [place] % (Auto) 9.8 H (2.0-8.0) % Eos % (Auto) 4.2 H (1.0-3.0) % Baso % (Auto) 1.0 (0.0-1.0) % Neut # (Auto) 6.09 (2.50-7.00) 10^3/uL Lymph # (Auto) 2.84 (1.00-4.00) 10^3/uL [place] # (Auto) 1.03 H (0.10-0.80) 10^3/uL Eos # (Auto) 0.44 H (0.10-0.30) 10^3/uL Baso # (Auto) 0.11 H (0.00-0.10) 10^3/uL Immature Gran # (Auto) 0.01 (0.00-0.50) 10^3/uL PT 10.4 (9.2-11.2) SEC INR 1.0 (0.9-1.1) APTT 26.6 (22.8-31.4) SEC Sodium 134 L (136-145) mmol/L Potassium 4.0 (3.5-5.1) mmol/L Chloride 101 (98-107) mmol/L Carbon Dioxide 21.6 (21.0-32.0) mmol/L Anion Gap 15.4 H (5-15) mmol/L BUN 16 (7-18) mg/dL Creatinine 0.80 (0.51-1.17) mg/dL Est Cr Clr Drug Dosing 92.96 mL/min Estimated GFR (MDRD) > 60 mL/min Glucose 136 (70-140) mg/dL Calcium 8.9 (8.7-10.3) mg/dL Total Bilirubin 0.5 (0.2-1.0) mg/dL AST 15 (15-37) U/L ALT 26 (14-63) U/L Alkaline Phosphatase 83 (46-116) U/L Troponin I High Sens 9.000 (0-76.000) pg/mL Total Protein 7.4 (6.4-8.2) g/dL Albumin 3.59 (3.40-5.00) g/dL SARS CoV-2 RNA Rapid EDY (NEGATIVE) 01/01/21 01/02/21 01/02/21 Range/Units 11:52 07:35 07:35 WBC 11.76 H (5.00-10.00) 10^3/uL RBC 6.43 H (4.50-6.00) 10^6/uL Hgb 18.8 H (13.0-17.0) g/dL Hct 56.2 H (40.0-52.0) % MCV 87.4 (82.0-92.0) fL MCH 29.2 (27.0-31.0) pg MCHC 33.5 (32.0-36.0) g/dL RDW 13.1 (11.5-14.5) % Plt Count 341 (150-400) 10^3/uL MPV 10.8 H (7.4-10.4) fL Immature Gran % (Auto) 0.3 (0.0-5.0) % Neut % (Auto) 60.3 (50.0-70.0) % Lymph % (Auto) 24.1 (20.0-40.0) % [place] % (Auto) 9.0 H (2.0-8.0) % Eos % (Auto) 5.3 H (1.0-3.0) % Baso % (Auto) 1.0 (0.0-1.0) % Neut # (Auto) 7.10 H (2.50-7.00) 10^3/uL Lymph # (Auto) 2.83 (1.00-4.00) 10^3/uL [place] # (Auto) 1.06 H (0.10-0.80) 10^3/uL Eos # (Auto) 0.62 H (0.10-0.30) 10^3/uL Baso # (Auto) 0.12 H (0.00-0.10) 10^3/uL Immature Gran # (Auto) 0.03 (0.00-0.50) 10^3/uL PT (9.2-11.2) SEC INR (0.9-1.1) APTT (22.8-31.4) SEC Sodium 135 L (136-145) mmol/L Potassium 4.1 (3.5-5.1) mmol/L Chloride 100 (98-107) mmol/L Carbon Dioxide 23.1 (21.0-32.0) mmol/L Anion Gap 16.0 H (5-15) mmol/L BUN 14 (7-18) mg/dL Creatinine 0.74 (0.51-1.17) mg/dL Est Cr Clr Drug Dosing 100.50 mL/min Estimated GFR (MDRD) > 60 mL/min Glucose 135 (70-140) mg/dL Calcium 9.1 (8.7-10.3) mg/dL Total Bilirubin (0.2-1.0) mg/dL AST (15-37) U/L ALT (14-63) U/L Alkaline Phosphatase (46-116) U/L Troponin I High Sens 7.500 (0-76.000) pg/mL Total Protein (6.4-8.2) g/dL Albumin (3.40-5.00) g/dL SARS CoV-2 RNA Rapid EDY Negative (NEGATIVE) Med Orders - Current: Current Medications Acetaminophen (Acetaminophen 325 Mg Tab) 650 mg PO Q6H PRN PRN Reason: Pain Albuterol (Albuterol 8 Gm Inhaler) 0 gm INH Q4HR PRN PRN Reason: short of breath Apixaban (Apixaban 5 Mg Tab) 5 mg PO BID [facility] Last Admin: 01/02/21 08:10 Dose: 5 mg Documented by: Aspirin (Aspirin 81 Mg Tab.Ec) 162 mg PO DAILY [facility] Last Admin: 01/02/21 08:09 Dose: 162 mg Documented by: Clotrimazole (Clotrimazole 1% Crm 30 Gm Tube) 0 gm TOP ASDIRECTED PRN PRN Reason: affected areas Famotidine (Famotidine 20 Mg Tab - Ptom) 20 mg PO BEDTIME [facility] Last Admin: 01/01/21 20:35 Dose: 20 mg Documented by: Fish Oil (Fish Oil/[place]-3 Fatty Acids 1 Gm Cap) 1 gm PO DAILY [facility] Fluticasone Propionate (Fluticasone Propionate Nasal [place] 16 Gm Bottle) 0 gm DONTE BID [facility] Last Admin: 01/01/21 20:35 Dose: 1 spray Documented by: Lisinopril (Lisinopril 20 Mg Tab) 40 mg PO DAILY [facility] Loratadine (Loratadine 10 Mg Tab) 10 mg PO DAILY [facility] Last Admin: 01/02/21 08:10 Dose: 10 mg Documented by: Metformin HCl (Metformin 500 Mg Tab - Ptom) 500 mg PO BIDMEALS [facility] Last Admin: 01/02/21 08:10 Dose: 500 mg Documented by: Metoprolol Tartrate (Metoprolol Tartrate 25 Mg Tab) 50 mg PO BID [facility] Last Admin: 01/02/21 08:10 Dose: 50 mg Documented by: Mometasone Furoate (Mometasone Furoate Powder 220 Mcg/Puff 14 Dose Inhaler) 1 puff INH DAILY [facility] Pantoprazole Sodium (Pantoprazole 40 Mg Tab.Cr - Ptom) 40 mg PO BID [facility] Last Admin: 01/02/21 08:10 Dose: 40 mg Documented by: Simvastatin 40mg Tab (- Ptom) 1 each PO BEDTIME [facility] Last Admin: 01/01/21 20:33 Dose: 1 each Documented by: Sodium Chloride (Sodium Chloride 0.9% 10 Ml Syringe) 10 ml FLUSH Q8HR PRN PRN Reason: keep vein open Last Admin: 01/01/21 10:00 Dose: 10 ml Documented by: Discontinued Medications Metoprolol Tartrate (Metoprolol Tartrate 25 Mg Tab) 25 mg PO ONETIME ONE Stop: 01/01/21 11:53 Last Admin: 01/01/21 12:55 Dose: 25 mg Documented by: Metoprolol Tartrate (Metoprolol Tartrate 25 Mg Tab) 25 mg PO BID [facility] Simvastatin (Simvastatin 20 Mg Tab) Confirm Administered Dose 40 mg .ROUTE .STK- MED ONE Stop: 01/01/21 20:23 Last Admin: 01/01/21 22:43 Dose: Not Given Documented by: - Exam General: Reports: Alert, Oriented, Cooperative, No Acute Distress Lungs: Reports: Clear to Auscultation Cardiovascular: Reports: No Murmurs, Irregular Rhythm Extremities: No Pedal Edema
== END 2021-01-02 10:23 | disposition home or self-care (01) ==
LOC: KA.ED 09:48 → KA.MS 12:52 → UNDOADMOB 13:21 → KA.MS 13:21
PROVIDERS: ADMIT Internal Medicine; ATTEND Internal Medicine
DX: I48.91 Unspecified atrial fibrillation (principal); Z20.822 Contact with and (suspected) exposure to COVID-19; I10 Essential (primary) hypertension; E78.5 Hyperlipidemia, unspecified; E11.9 Type 2 diabetes mellitus without complications; R06.02 Shortness of breath; K21.9 Gastro-esophageal reflux disease without esophagitis; E78.00 Pure hypercholesterolemia, unspecified; Z88.7 Allergy status to serum and vaccine; Z79.82 Long term (current) use of aspirin; Z79.84 Long term (current) use of oral hypoglycemic drugs; Z79.899 Other long term (current) drug therapy
CPT/HCPCS: 36415; 71046; 80048; 80053; 84484; 85025; 85610; 85730; 93005; 99217; 99220; 99285-25; A9270-GY; G0378; U0002

== ENCOUNTER 2021-01-12 07:05 | Emergency (ER) | payer MEDICARE, OTHER ==
[2021-01-12 07:24] VITALS: BP 159/98; PULSE 92
--- NOTE | 2021-01-12 08:17 | EDM.PDOC ---
ED HPI GENERAL MEDICAL PROBLEM - General Chief Complaint: General Stated Complaint: RIGHT SIDE FACE SWELLING Time Seen by Provider: 01/12/21 07:54 Source of Information: Reports: Patient History Limitations: Reports: No Limitations - History of Present Illness INITIAL COMMENTS - FREE TEXT/NARRATIVE: Patient presents with pain, redness, and swelling of his right cheek, in his mo uth, and right upper head. This started Friday evening (3.5 days ago). He has never had this before. Right Face/Facial Pain Score (Numeric/FACES): 4 - Related Data Allergies Allergy/AdvReac Type Severity Reaction Status Date / Time Tetanus Vaccines and Toxoid Allergy Muscle Verified 01/12/21 07:36 Aches Home Meds: Home Meds Aspirin [Halfprin] 162 mg PO DAILY 10/03/16 [History] Simvastatin [Zocor] 40 mg PO BEDTIME 10/03/16 [History] metFORMIN HCl [Metformin HCl] 500 mg PO BIDMEALS 10/03/16 [History] Albuterol [Ventolin HFA] 1 - 2 puff INH Q4HR PRN 07/06/20 [History] Betamethasone Dipropionate [Diprosone 0.05% Crm] 1 applic TOP ASDIRECTED PRN 07/06/20 [History] Clotrimazole 1 applic TOP ASDIRECTED PRN 07/06/20 [History] Fish Oil/[place]-3 Fatty Acids [Fish Oil 1,000 MG] 1 cap PO DAILY 07/06/20 [History] ALPRAZolam [Xanax] 0.25 - 0.5 mg PO TID PRN 09/04/20 [History] Pantoprazole Sodium [Protonix] 40 mg PO BID 09/04/20 [History] Fluticasone Propionate [Flonase] 1 spray DONTE BID 09/12/20 [History] Acetaminophen [Tylenol] 650 mg PO Q6H PRN tablet 09/15/20 [Rx] Apixaban [Eliquis] 5 mg PO BID tablet 01/02/21 [Rx] Famotidine [Pepcid] 20 mg PO BEDTIME tablet 01/02/21 [Rx] Cetirizine [ZyrTEC] 10 mg PO DAILY 01/12/21 [History] Metoprolol Tartrate [Lopressor] 25 mg PO BID 01/12/21 [History] Past Medical History HEENT History: Reports: Hard of Hearing, Impaired Vision, Other (See Below) Other HEENT History: sinus infections Cardiovascular History: Reports: Afib, High Cholesterol, Hypertension, SOB on Exertion Respiratory History: Reports: COPD, SOB Gastrointestinal History: Reports: Cholelithiasis, Chronic Constipation, Hemorrhoids, Other (See Below) Other Gastrointestinal History: currently having nausea and some difficulty with swallowing foods. Genitourinary History: Reports: BPH Musculoskeletal History: Reports: Back Pain, Chronic, Other (See Below) Neurological History: Reports: None Psychiatric History: Reports: None Endocrine/Metabolic History: Reports: Diabetes, Type II Oncologic (Cancer) History: Reports: None Dermatologic History: Reports: Eczema - Infectious Disease History Infectious Disease History: Reports: Chicken Pox, Influenza, Measles, Mumps - Past Surgical History Head Surgeries/Procedures: Reports: None HEENT Surgical History: Reports: Tonsillectomy Cardiovascular Surgical History: Reports: None Respiratory Surgical History: Reports: None GI Surgical History: Reports: Appendectomy, Cholecystectomy, Colonoscopy, Other (See Below) Other GI Surgeries/Procedures: Hemmorrhoidectomy done 09/22/16. Male Surgical History: Reports: Cystectomy Endocrine Surgical History: Reports: None Neurological Surgical History: Reports: Lumbar Spine Other Neurological Surgeries/Procedures: april 1995 Musculoskeletal Surgical History: Reports: Shoulder Surgery Other Musculoskeletal Surgeries/Procedures:: back surgery in April 1995 - Past Imaging History Past Imaging History: Reports: MRI, Xray Social & Family History - Family History Family Medical History: No Pertinent Family History - Tobacco Use Tobacco Use Status *Q: Former Tobacco User Used Tobacco, but Quit: Yes Month/Year Tobacco Last Used: quit several years ago - Caffeine Use Caffeine Use: Reports: Coffee Other Caffeine Use: rarely - Alcohol Use Days Per Week of Alcohol Use: 2 Number of Drinks Per Day: 2 Total Drinks Per Week: 4 - Recreational Drug Use Recreational Drug Use: No - Living Situation & Occupation Living situation: Reports: , with Spouse ED ROS GENERAL - Review of Systems Review Of Systems: See Below Constitutional: Denies: Fever, Chills, Malaise, Weakness HEENT: Reports: Throat Pain (pain in right side of mouth/throat). Denies: Ear Pain, Vision Change Respiratory: Denies: Shortness of Breath, Cough Cardiovascular: Denies: Chest Pain, Lightheadedness, Syncope GI/Abdominal: Denies: Abdominal Pain, Vomiting Musculoskeletal: Reports: No Symptoms Skin: Denies: Cyanosis, Jaundice, Mottled, Pallor, Diaphoresis Neurological: Denies: Confusion, Dizziness, Headache, Seizure, Syncope, Trouble Speaking, Difficulty Walking Psychiatric: Denies: Agitation ED EXAM, GENERAL - Physical Exam Exam: See Below Exam Limited By: No Limitations General Appearance: Alert, WD/WN, No Apparent Distress Eye Exam: Right Eye: Other (erythema, swelling/edema right lower eyelid), Bilateral Eye: EOMI, PERRL Ears: Normal External Exam, Hearing Grossly Normal Nose: Other (erythema right side external) Throat/Mouth: Other (right side of palate is erythematous) Head: Atraumatic, Normocephalic, Facial Swelling (right upper cheek with erythema), Other (right parietal head has small area of tenderness and erythema/rash) Neck: Normal Inspection, Full Range of Motion Respiratory/Chest: No Respiratory Distress, Lungs Clear, Normal Breath Sounds Cardiovascular: Regular Rate, Rhythm, No Murmur Back Exam: Normal Inspection, Full Range of Motion. No: CVA Tenderness (L), CVA Tenderness (R) Extremities: Normal Inspection, Normal Range of Motion Neurological: Alert, Oriented, Normal Cognition, No Motor/Sensory Deficits Psychiatric: Normal Affect, Normal Mood Skin Exam: Warm, Dry, Intact, Rash (on right face and scalp as above.) Course - Vital Signs Last Recorded V/S: Last Vital Signs Temp 97.6 F 01/12/21 07:15 Pulse 92 01/12/21 07:15 Resp 18 01/12/21 07:15 BP 159/98 H 01/12/21 07:15 Pulse Ox 96 01/12/21 07:15 - Re-Assessments/Exams Free Text/Narrative Re-Assessment/Exam: 01/12/21 08:41 Discussed findings and treatment plan with patient. Dr. Lynn stopped in to see patient also. We will treat with Valacyclovir and Lyrica. Patient will use Tylenol for pain control and call the clinic if he needs anything more for it. Discharged to home in stable condition. Departure - Departure Time of Disposition: 08:39 Disposition: Home, Self-Care 01 Condition: Good Clinical Impression: Shingles Qualifiers: Herpes zoster complications: without complications Qualified Code(s): B02.9 - Zoster without complications - Discharge Information Referrals: Tawnya Dunn MD [Primary Care Provider] - Additional Instructions: Take the medications as directed. Follow up with your PCP if any problems or if not resolving as expected. Return to ER as needed. Sepsis Event Note (ED) - Evaluation Sepsis Screening Result: No Definite Risk - Focused Exam Vital Signs: Vital Signs Temp Pulse Resp BP Pulse Ox 01/12/21 07:15 97.6 F 92 18 159/98 H 96
[2021-01-12] MEDS: Acetaminophen 500 MG Tab PO ONE (08:25)
== END 2021-01-12 08:50 | disposition home or self-care (01) ==
LOC: KA.ED 07:05
DX: B02.9 Zoster without complications (principal); I48.91 Unspecified atrial fibrillation; E78.00 Pure hypercholesterolemia, unspecified; I10 Essential (primary) hypertension; J44.9 Chronic obstructive pulmonary disease, unspecified; E11.9 Type 2 diabetes mellitus without complications; Z79.01 Long term (current) use of anticoagulants; Z79.82 Long term (current) use of aspirin; Z79.84 Long term (current) use of oral hypoglycemic drugs; Z79.899 Other long term (current) drug therapy; Z88.7 Allergy status to serum and vaccine; Z87.891 Personal history of nicotine dependence
CPT/HCPCS: 99283; 99284; A9270-GY

== ENCOUNTER 2024-10-04 05:37 | Inpatient (IN) | payer MEDICARE, OTHER ==
[2024-10-04] MEDS: Sodium Chloride 0.9% 10 ML Syringe FLUSH PRN (06:05)
[2024-10-04 06:13] LABS: BASOPHILS ABSOLUTE AUTO 0.05 10^3/uL (0.00-0.10); BASOPHILS PERCENT AUTO 0.2 % (0.0-1.0); IMMATURE GRAN ABSOLUTE AUTO 0.06 10^3/uL (0.00-0.04); IMMATURE GRAN PERCENT AUTO 0.3 % (0.0-0.4); LYMPHOCYTES ABSOLUTE AUTO 1.19 10^3/uL (1.00-4.00); LYMPHOCYTES PERCENT AUTO 5.8 % (20.0-40.0); MEAN CORPUSCULAR HEMOGLOBIN 30.2 pg (27.0-31.0); MEAN CORPUSCULAR HGB CONC 33.3 g/dL (32.0-36.0); MEAN CORPUSCULAR VOLUME 90.7 fL (82.0-92.0); MEAN PLATELET VOLUME 10.2 fL (7.4-10.4); MONOCYTES ABSOLUTE AUTO 1.59 10^3/uL (0.10-0.80); MONOCYTES PERCENT AUTO 7.7 % (2.0-8.0); NEUTROPHILS ABSOLUTE AUTO 17.75 10^3/uL (2.50-7.00); PLATELET COUNT,PLT 305 10^3/uL (150-400); RED BLOOD CELL COUNT 4.96 10^6/uL (4.50-6.00); RED CELL DISTRIBUTION WIDTH 13.8 % (11.5-14.5); WHITE BLOOD CELL COUNT,WBC 20.64 10^3/uL (5.00-10.00)
[2024-10-04 06:35] LABS: ALBUMIN 3.33 g/dL (3.40-5.00); ANION GAP 11.9 mmol/L (5-15); BILIRUBIN TOTAL 0.9 mg/dL (0.2-1.0); C-REACTIVE PROTEIN 4.33 mg/dL (0.00-0.50); CALCIUM 9.4 mg/dL (8.7-10.3); CARBON DIOXIDE,CO2 25.8 mmol/L (21.0-32.0); CREATININE 0.87 mg/dL (0.51-1.17); EST CRCL DRUG DOSING (CG) 80.52 mL/min; POTASSIUM,K 4.7 mmol/L (3.5-5.1); PROTEIN TOTAL,TP 7.7 g/dL (6.4-8.2)
[2024-10-04] MEDS: Sodium Chloride 0.9% 1,000 ML IV ONE (06:54)
[2024-10-04] MEDS: Ondansetron 4 MG/2 ML SDV IVPUSH ONE (06:56)
[2024-10-04] MEDS: cefTRIAXone 2 GM Vial IVPUSH ONE (07:35)
[2024-10-04] MEDS ORDERED: Acetaminophen/HYDROcodone 325-5 MG Tab PO PRN (09:40)
[2024-10-04] MEDS ORDERED: 50% Dextrose in Water 50 ML Syringe IVPUSH PRN (09:40)
[2024-10-04] MEDS ORDERED: Glucagon,Human Recombinant 1 MG Vial IM PRN (09:40)
[2024-10-04] MEDS ORDERED: Glucose Gel 15 GM in 37.5 GM Tube PO PRN (09:40)
[2024-10-04] MEDS ORDERED: Ondansetron 4 MG/2 ML SDV IV PRN (09:40)
[2024-10-04] MEDS: amLODIPine 5 MG Tab PO SCH ×2 (10:50→20:43)
[2024-10-04] MEDS: Acetaminophen 325 MG Tab PO PRN (10:51)
[2024-10-04] MEDS: Rivaroxaban 10 MG Tab PO SCH ×2 (10:52→20:44)
[2024-10-04] MEDS: Amiodarone 200 MG Tab PO SCH (10:52)
[2024-10-04] MEDS: Aspirin 81 MG Tab.EC PO SCH ×2 (10:52→20:45)
[2024-10-04] MEDS: VANCOmycin 1.5 GM/300 ML 1.5 GM in Premix Bag 1 BAG IV SCH (11:01)
[2024-10-04] MEDS: Sodium Chloride 0.9% 100 ML IV SCH (11:01)
[2024-10-04] MEDS: Sodium Chloride 0.9% 100 ML ONE (11:15)
[2024-10-04] MEDS: Gabapentin 100 MG Cap PO SCH (11:17)
[2024-10-04] MEDS: Gabapentin 300 MG Cap PO SCH (11:28)
[2024-10-04] MEDS: Insulin Lispro 100 Unit/ML 3 ML KwikPen SUBCUT SCH (17:53)
[2024-10-04] MEDS: atorvaSTATin 40 MG Tab PO SCH (20:44)
[2024-10-04] MEDS: VANCOmycin 1 GM/200 ML 1 GM in Premix Bag 1 BAG IV SCH (22:13)
[2024-10-05 07:08] LABS: HEMATOCRIT 41.5 % (40.0-52.0); HEMOGLOBIN 13.6 g/dL (13.0-17.0); MEAN CORPUSCULAR HEMOGLOBIN 30.3 pg (27.0-31.0); MEAN CORPUSCULAR HGB CONC 32.8 g/dL (32.0-36.0); MEAN CORPUSCULAR VOLUME 92.4 fL (82.0-92.0); PLATELET COUNT,PLT 258 10^3/uL (150-400); RED BLOOD CELL COUNT 4.49 10^6/uL (4.50-6.00); RED CELL DISTRIBUTION WIDTH 14.2 % (11.5-14.5); WHITE BLOOD CELL COUNT,WBC 12.99 10^3/uL (5.00-10.00)
[2024-10-05 07:25] LABS: ALBUMIN 2.8 g/dL (3.40-5.00); ANION GAP 15.4 mmol/L (5-15); BILIRUBIN TOTAL 0.6 mg/dL (0.2-1.0); CARBON DIOXIDE,CO2 23.8 mmol/L (21.0-32.0); CREATININE 0.87 mg/dL (0.51-1.17); EST CRCL DRUG DOSING (CG) 80.52 mL/min; POTASSIUM,K 4.2 mmol/L (3.5-5.1); PROTEIN TOTAL,TP 7.1 g/dL (6.4-8.2)
[2024-10-05] MEDS: Spironolactone 25 MG Tab PO SCH (08:21)
[2024-10-05] MEDS: cefTRIAXone 2 GM Vial IVPUSH SCH (08:21)
[2024-10-05] MEDS: Furosemide 40 MG Tab PO SCH (08:21)
[2024-10-05] MEDS: VANCOmycin 1.25 GM/250 ML 1.25 GM in Premix Bag 1 BAG IV SCH (11:02)
[2024-10-06 07:42] LABS: HEMATOCRIT 43.9 % (40.0-52.0); HEMOGLOBIN 14.3 g/dL (13.0-17.0); MEAN CORPUSCULAR HEMOGLOBIN 29.9 pg (27.0-31.0); MEAN CORPUSCULAR HGB CONC 32.6 g/dL (32.0-36.0); MEAN CORPUSCULAR VOLUME 91.6 fL (82.0-92.0); MEAN PLATELET VOLUME 10.2 fL (7.4-10.4); PLATELET COUNT,PLT 275 10^3/uL (150-400); RED BLOOD CELL COUNT 4.79 10^6/uL (4.50-6.00); RED CELL DISTRIBUTION WIDTH 13.9 % (11.5-14.5); WHITE BLOOD CELL COUNT,WBC 10.58 10^3/uL (5.00-10.00)
[2024-10-06 08:02] LABS: ALBUMIN 2.89 g/dL (3.40-5.00); ANION GAP 15.1 mmol/L (5-15); BILIRUBIN TOTAL 0.6 mg/dL (0.2-1.0); CALCIUM 9.4 mg/dL (8.7-10.3); CARBON DIOXIDE,CO2 25.1 mmol/L (21.0-32.0); CREATININE 0.92 mg/dL (0.51-1.17); EST CRCL DRUG DOSING (CG) 76.15 mL/min; POTASSIUM,K 4.2 mmol/L (3.5-5.1); PROTEIN TOTAL,TP 7.8 g/dL (6.4-8.2)
[2024-10-06 12:09] VITALS: BP 130/48; PULSE 62
== END 2024-10-06 12:16 | disposition home or self-care (01) | DRG 872 ==
LOC: KA.ED 05:37 → KA.MS 08:17
PROVIDERS: ADMIT Internal Medicine; ATTEND Internal Medicine
DX: A41.9 Sepsis, unspecified organism (principal); L03.115 Cellulitis of right lower limb; I50.32 Chronic diastolic (congestive) heart failure; Z68.41 Body mass index [BMI] 40.0-44.9, adult; Z66 Do not resuscitate; I48.0 Paroxysmal atrial fibrillation; H54.7 Unspecified visual loss; E78.00 Pure hypercholesterolemia, unspecified; I11.0 Hypertensive heart disease with heart failure; J44.9 Chronic obstructive pulmonary disease, unspecified; K80.20 Calculus of gallbladder without cholecystitis without obstruction; K59.09 Other constipation; N40.0 Benign prostatic hyperplasia without lower urinary tract symptoms; G89.29 Other chronic pain; E88.810 Metabolic syndrome; M54.9 Dorsalgia, unspecified; E66.9 Obesity, unspecified; E86.0 Dehydration; E11.9 Type 2 diabetes mellitus without complications; Z79.01 Long term (current) use of anticoagulants; Z90.49 Acquired absence of other specified parts of digestive tract; Z79.899 Other long term (current) drug therapy; Z79.82 Long term (current) use of aspirin; Z88.8 Allergy status to other drugs, medicaments and biological substances; Z95.5 Presence of coronary angioplasty implant and graft; Z98.890 Other specified postprocedural states; Z98.49 Cataract extraction status, unspecified eye; Z87.891 Personal history of nicotine dependence
CPT/HCPCS: 36415; 71046; 80053; 80202; 82947; 83605; 83735; 83880; 84484; 85025; 85027; 86140; 87040; 93010; 96361; 96374; 99284; 99285-25; A9270-GY; J0696; J2405; J3372; J7030; Q3014